=== PATIENT | male | born 1970 | race Caucasian/White ===

== ENCOUNTER 2019-02-28 14:41 | Inpatient (IN) ==
[2019-02-28] MEDS ORDERED: ASPIRIN PO ONE (14:43)
--- NOTE | 2019-02-28 14:50 | EKG Report ---
Test Performed on : 02/28/2019 2:44:31 PM Test Reason : cp Blood Pressure : / mmHG Vent. Rate : 070 BPM Atrial Rate : 070 BPM P-R Int : 192 ms QRS Dur : 100 ms QT Int : 400 ms P-R-T Axes : 025 010 175 degrees QTc Int : 432 ms Normal sinus rhythm. Septal infarct , age undetermined ST & T wave abnormality, consider inferolateral ischemia Abnormal ECG When compared with ECG of 08-JAN-2019 16:06, Septal infarct is now present Unconfirmed Result
[2019-02-28 15:25] LABS: BASO# 0.03 X1000 (0.0-0.2); BASO% 0.3 % (0.0-0.8); EOS# 0.32 X1000 (0.0-0.7); EOS% 3.5 % (0.0-10.0); HEMATOCRIT 40.1 % (42.0-52.0); HEMOGLOBIN 13.5 g/dL (14.0-18.0); IMM GRAN# 0.07 X1000 (0.0-0.04); IMM GRAN% 0.8 % (0.0-0.5); LYMPH# 2.45 X1000 (1.2-3.4); LYMPH% 26.4 % (20.5-51.1); MCH 28.8 PG (27-31); MCHC 33.7 g/dL (33-37); MCV 85.5 FL (81-99); MONO# 0.45 X1000 (0.11-0.59); MONO% 4.9 % (1.7-9.3); MPV 10.6 FL (7.4-10.4); NEUT# 5.95 X1000 (1.4-6.5); NEUT% 64.1 % (42.2-75.2); PLT 248 X1000 (130-400); RBC 4.69 XMIL (4.7-6.1); WBC 9.27 X1000 (4.8-10.8)
[2019-02-28 15:34] LABS: INR 0.91
--- NOTE | 2019-02-28 15:34 | Diag Imaging Result Doc PS360 ---
EXAM: CHEST-2 VIEWS 02/28/2019 HISTORY: cp TECHNIQUE: PA and lateral chest COMMENT: The appearance the chest has not changed significantly since 01/08/2019. IMPRESSION: Stable chest. Electronically signed by Easton Franklin 02/28/2019 3:32 PM
[2019-02-28 15:35] LABS: PTT 28.5 Seconds (22.3-41.8)
[2019-02-28] MEDS ORDERED: SODIUM CHLORIDE 0.9% INJ ONE (15:41)
[2019-02-28] MEDS ORDERED: PHENERGAN IV ONE (15:41)
[2019-02-28] MEDS ORDERED: MORPHINE IV ONE ×2 (15:41→20:22)
[2019-02-28] MEDS ORDERED: BENADRYL IV ONE (15:41)
[2019-02-28 16:01] LABS: AGAP 16; ALB/GLOB RATIO 1.5; ALBUMIN 4.3 g/dL (3.5-5.0); ALKALINE PHOSPHATASE 103 U/L (32-122); BUN 11 mg/dL (8-22); CALCIUM 9.5 mg/dL (8.8-10.2); CHLORIDE 100 mmol/L (98-107); CK PROFILE 61 U/L (24-204); COSMO 284; CREATININE 0.7 mg/dL (0.7-1.2); ESTIMATED GFR > 60; GLUCOSE 199 mg/dL (70-104); GOT 23 U/L (10-34); GPT 26 U/L (10-44); POTASSIUM 3.8 mmol/L (3.5-5.1); SODIUM 140 mmol/L (136-145); TCO2 24 mmol/L (25-35); TOTAL BILIRUBIN 0.45 mg/dL (0.20-1.00); TOTAL PROTEIN 7.2 g/dL (6.3-8.3)
[2019-02-28] MEDS ORDERED: G.I. COCKTAIL PO ONE (17:18)
[2019-02-28] MEDS: LOVENOX SUBQ SCH (18:29)
[2019-02-28] MEDS: OFIRMEV 1000 MG/ISOTONIC SOLN 1,000 MG/100 ML BOTTLE IV PRN (18:41)
--- NOTE | 2019-02-28 19:01 | HISTORY AND PHYSICAL ---
CHIEF COMPLAINT: Chest pain. HISTORY OF PRESENT ILLNESS: This is a 48-year-old gentleman with a history of coronary artery bypass graft (2-vessel), hypertension, hyperlipidemia, gastroparesis, and insulin-dependent diabetes mellitus. He presents to the emergency room complaining of chest pain. He describes this as a sharp pain that radiates across his chest, bilateral shoulders, and now up into his jaws. He intermittently has accompanying nausea and lightheadedness with the pain. He denies any palpitations, any syncope, any shortness of breath, any fevers. PAST MEDICAL HISTORY: 1. Coronary artery disease, 2-vessel disease, having undergone a 2-vessel bypass, including PHUC to the LAD and a vein graft to the right coronary artery. Cardiac catheterization in November 2017 revealed patent grafts. 2. Hypertension. 3. Hyperlipidemia. 4. Gastroparesis with a T1/2 emptying of greater than 3 hours. 5. Insulin-dependent diabetes mellitus. 6. History of chronic back pain. 7. Gastroesophageal reflux disease with reflux noted to the distal esophagus on EGD. 8. Chronic narcotic use. 9. Chronic constipation. PAST SURGICAL HISTORY: 1. Coronary artery bypass graft in August 2017. 2. Multiple spinal surgeries with placement of a neurospinal stimulator in his lower back. 3. Tonsillectomy. 4. Cholecystectomy. SOCIAL HISTORY: He is unemployed. He is on disability. He used to work as a cook. He denies alcohol, tobacco, or illicit drug use. ALLERGIES: Neurontin, Keflex, Vasotec, Demerol, Robaxin, penicillin, Compazine, sulfa, Flomax. DIAGNOSTIC STUDIES: WBC is 9.2 with hemoglobin 13.5, hematocrit 40.1, and platelets of 248,000. INR 0.91. Sodium 140, potassium 3.8, BUN 11, creatinine 0.7 with a glucose of 199. Troponins are negative on multiple occasions. CPKs are 64, 61, and 64. ASSESSMENT AND PLAN: 1. Chest pain, rule out. We will trend EKGs as well as troponin and cardiac profile. We will continue any appropriate home medications. 2. Nausea. We will give Zofran. 3. Gastroparesis with a T1/2 emptying of greater than 3 hours. 4. Insulin-dependent diabetes mellitus. Start pattern blood glucose with sliding scale insulin. 5. History of chronic back pain. 6. Gastroesophageal reflux disease with reflux noted in the distal esophagus on esophagogastroduodenoscopy. 7. Chronic pain with narcotic dependence. 8. Chronic constipation. We will start Linzess. 9. Hypertension. We will continue appropriate home medications. 10. Deep vein thrombosis prophylaxis. We will use Lovenox. 11. Gastrointestinal prophylaxis. Prilosec. Further treatments pending hospital course. Dictated by SHRUTHI Antonio for Homer Beltran MD cc: SHRUTHI Antonio MD I have seen and examined Mr Polanco today in the ER. His father was at the bedside. Mr Polanco did continue to complain of chest pain radiating to his back and upper extremities. He did say that he normally get ease with his pains only with Dilaudid. I have examined him and reviewed his lab works.I have also exhaustively reviewed all his previous chart. His troponin x2 are negative.His EKG has no acute changes comparing to the previous ones. He has chronic back pains from old surgeries but nothing seems to be new. Mr Polanco will be admitted to the medical floor on Tele and continue to r/o any ACS. He has hx of gastroparesis and multiple pain issues documented in his chart. For now, I will be using IV Ofirmev for pain control. He was not particularly happy with the pain management Cardiology will be consulted. If ACS is r/o, patient can be discharged. All question and concerns were addressed. BULMARO
--- NOTE | 2019-02-28 21:03 | PROVIDER DOCUMENTATION ---
This chart was entered by Nidhi Beebe Scribe, acting as scribe for Martin Polanco MD. HPI-Chest Pain - General Chief Complaint: Chest Pain Stated Complaint: CP Time Seen by Provider: 02/28/19 15:05 Source: patient Allergies/Adverse Reactions: Patient Allergies Allergy/AdvReac Type Severity Reaction Status Date / Time methocarbamol [From Robaxin] Allergy Severe SHORTNESS Verified 08/18/18 20:26 OF BREATH prochlorperazine Allergy Severe seizures Verified 08/18/18 20:26 [From Compazine] tamsulosin [From Flomax] Allergy Severe SHORTNESS Verified 08/18/18 20:26 OF BREATH cephalexin [From Keflex] Allergy Mild RASH Verified 08/18/18 20:26 gabapentin [From Neurontin] Allergy Mild Hallucinati Verified 08/18/18 20:26 ons meperidine [From Demerol] Allergy Mild ITCHING Verified 08/18/18 20:26 Penicillins Allergy Mild RASH Verified 08/18/18 20:26 Sulfa (Sulfonamide Allergy Mild RASH Verified 08/18/18 20:26 Antibiotics) enalaprilat [From Vasotec] Allergy Unknown Unknown Verified 08/18/18 20:26 Home Medications: Home Medication List Medication Instructions Recorded Confirmed Last Taken Type Aspirin/Calcium Carbonate/Mag 325 mg PO QAM #30 tab 02/07/18 01/08/19 01/08/19 Rx [Aspirin Buffered 325 mg Tab] 325mg Clonazepam [Klonopin] 2 mg PO HS #30 tab 02/07/18 01/08/19 01/07/19 Rx 2mg Fenofibrate 160 mg PO QHS #30 tab 02/07/18 01/08/19 01/07/19 Rx 160mg Hydrochlorothiazide 25 mg PO DAILY #30 tab 02/07/18 01/08/19 01/08/19 Rx 25mg Pregabalin [Lyrica] 100 mg PO TID@0900,1500,2100 #90 02/07/18 01/08/19 01/08/19 Rx capsule 100mg Metoprolol [Lopressor] 100 mg PO BID 07/08/18 01/08/19 01/08/19 History 100mg Nifedipine [Nifedipine ER] 30 mg PO QHS 07/08/18 01/08/19 01/07/19 History 30mg Amitriptyline [Elavil] 100 mg PO DAILY 08/18/18 01/08/19 01/07/19 History 100mg Furosemide [Lasix] 40 mg PO DAILY 08/19/18 01/08/19 01/06/19 History 40mg Insulin Regular, Human [Humulin R 30 units SQ BID 08/19/18 01/08/19 01/08/19 His tory U-500 Kwikpen] 30 units Cannabidiol (Cbd) Extract 100 mg PO DAILY 01/08/19 01/08/19 01/08/19 History [Epidiolex] Insulin Human NPH [Humulin N] 70 unit SUBQ BID 01/08/19 01/08/19 01/08/19 History 70 units Lisinopril 40 mg PO DAILY 01/08/19 01/08/19 01/08/19 History 40mg Magnesium 30 mg PO QHS 01/08/19 01/08/19 01/07/19 History Omeprazole 40 mg PO BID 01/08/19 01/08/19 01/08/19 History 40mg Potassium Chloride 10 meq PO QHS 01/08/19 01/08/19 01/07/19 History - History of Present Illness-CP Nature of Presenting Problem: Patient is a 48 year old male who presents with central chest pain that radiates to back, bilateral shoulders and jaw. Patient states nausea and lightheadedness with pain. Report symptoms started 1 hour prior to arrival. States calling Dr. Joshi's office and was informed to come to the ED. History of a [place] in 2004, 6 cardiac stents placed and 2 CABGs. Does not report shortness of breath. Location: reports: central Chest Pain Radiation: reports: jaw, shoulders (bilateral), back Quality of Pain: reports: pressure, sharp Severity in ED: moderate Onset/Duration: 1 hour ago Timing: still present Context/Activities at Onset: reports: light activity Associated Symptoms: reports: nausea Prior Chest Pain/Cardiac Workup: reports: heart attack (2004), other (2 CABG.) Similar Symptoms Previously?: No Recently Seen Here or By Another Healthcare Provider: No Review of Systems - Adult - REVIEW OF SYSTEMS - ADULT Constitutional: reports: no symptoms reported. denies: chills, fever, fatique Eyes: reports: no symptoms reported Ears, Nose, Mouth & Throat: reports: no symptoms reported Cardiovascular: reports: see HPI, chest pain. denies: irregular heart rate, palpitations Respiratory: reports: no symptoms reported Gastrointestinal: reports: see HPI, nausea. denies: abdominal pain Genitourinary: reports: no symptoms reported Musculoskeletal: reports: no symptoms reported Integumentary: reports: no symptoms reported Neurological: reports: see HPI, other (lightheadedness). denies: dizziness/vertigo, headache/migraines, numbness, syncope Psychiatric: reports: no symptoms reported Endocrine: reports: no symptoms reported Hematologic/Lymphatic: reports: no symptoms reported Allergic/Immunologic: reports: no symptoms reported All Other Systems: Reviewed and Negative Past History - Adult - PAST MEDICAL HISTORY-ADULT Review of Records: reports: Old Records Reviewed, Nursing Assessment Review, Medications Reviewed, Social history reviewed & non-contributory. Major Childhood Illnesses: reports: denies history Cardiovascular: reports: CAD, HTN, hyperlipidemia, [place], other (6 stents) Respiratory: reports: sleep apnea Gastrointestinal: reports: GERD Obstetrical/Gynecological: reports: denies history Genitourinary: reports: kidney disease Musculoskeletal: reports: chronic pain (back) Neurological: reports: denies history Endocrine/Immune: reports: Diabetes Other Conditions: reports: denies history - PRIOR SURGERIES/PROCEDURES Surgical/Procedure History: reports: CABG (bypass x2 //), cholecystectomy, cardiac stent (x6), tonsillectomy, back/neck (back) - IMMUNIZATION STATUS Childhood Immunizations: See Nurse Assessment Flu Vaccine: See Nurse Assessment - FAMILY HISTORY Family History: other (father and mother [place], father quadruple bypass) - SOCIAL HISTORY Smoking: denies Substance Use: alcohol, marijuana Alcohol Use Frequency: occasionally Physical Exam-General - PHYSICAL EXAM-ADULT Initial Vital Signs Reviewed: Yes - CONSTITUTIONAL General Appearance: alert, moderate distress. negative: lethargic, obtunded - EYES Eyes: PERRL/EOMI, pink conjunctivae. negative: scleral icterus - HEAD, EARS, NOSE, MOUTH & THROAT HENMT: normocephalic/atraumatic, moist mucous membranes. negative: angioedema, hearing deficit - NECK Neck: non-tender, normal inspection. negative: C-spine tenderness - RESPIRATORY Respiratory: chest non-tender, lungs clear, normal breath sounds. negative: crackles, rhonchi, wheezing - CARDIOVASCULAR Cardiovascular: normal peripheral pulses, regular rate, rhythm. negative: tachycardia, systolic murmur - GASTROINTESTINAL (ABDOMEN) Abdominal Exam: normal bowel sounds, non tender, soft. negative: guarding, rebound - MUSCULOSKELETAL Extremity: non-tender, normal inspection. negative: deformity, erythema, swelling - SKIN Integumentary: normal color, normal turgor, warm/dry. negative: cyanosis, ecchymosis, erythema, jaundice - NEUROLOGIC Neurologic: grossly normal. negative: aphasia, facial droop - PSYCHIATRIC Psych/Mental Status: normal mood/affect, oriented x 3. negative: anxious - HEART Score HEART Score: History: Slightly Suspicious HEART Score: ECG: Non-Specific Repolarization Disturbance/LBBB/PM HEART Score: Age: 45-65 Years HEART Score: Risk Factors for Atherosclerotic Disease: > or = 3 Risk Factors or History of Atherosclerotic Disease HEART Score: Troponin: < or = Normal Limit (4) Total HEART Score:: 4 Progress - PLAN OF CARE/RESULTS Progress/Plan/Lab Results: Vital Signs - 8 hr 02/28/19 14:45 02/28/19 15:02 02/28/19 15:32 Temperature 98.3 F Pulse Rate 68 69 71 Respiratory Rate 22 24 12 Blood Pressure 156/79 164/97 144/71 O2 Sat by Pulse Oximetry 97 97 96 02/28/19 15:46 02/28/19 16:02 02/28/19 16:17 Temperature Pulse Rate 72 70 Respiratory Rate 23 22 25 H Blood Pressure 144/86 174/92 166/90 O2 Sat by Pulse Oximetry 98 95 96 02/28/19 16:20 02/28/19 16:30 02/28/19 16:32 Temperature Pulse Rate 72 71 71 Respiratory Rate 27 H 23 20 Blood Pressure 154/89 O2 Sat by Pulse Oximetry 96 94 L 94 L 02/28/19 16:40 02/28/19 16:46 02/28/19 16:50 Temperature Pulse Rate 69 70 71 Respiratory Rate 29 H 17 25 H Blood Pressure 174/89 O2 Sat by Pulse Oximetry 95 94 L 95 02/28/19 17:00 02/28/19 17:02 02/28/19 17:10 Temperature Pulse Rate 69 71 69 Respiratory Rate 22 22 11 L Blood Pressure 143/80 O2 Sat by Pulse Oximetry 95 95 96 02/28/19 17:16 02/28/19 17:20 02/28/19 17:30 Temperature Pulse Rate 69 73 68 Respiratory Rate 20 15 20 Blood Pressure 156/84 O2 Sat by Pulse Oximetry 96 97 96 02/28/19 17:32 02/28/19 17:40 02/28/19 17:46 Temperature Pulse Rate 66 67 66 Respiratory Rate 24 34 H 16 Blood Pressure 135/80 153/77 O2 Sat by Pulse Oximetry 96 96 98 02/28/19 17:50 02/28/19 18:00 02/28/19 18:01 Temperature Pulse Rate 66 67 68 Respiratory Rate 19 Blood Pressure 162/90 O2 Sat by Pulse Oximetry 97 97 95 02/28/19 18:10 02/28/19 18:16 02/28/19 18:20 Temperature Pulse Rate 66 67 Respiratory Rate Blood Pressure 166/81 O2 Sat by Pulse Oximetry 94 L 98 97 02/28/19 18:30 02/28/19 18:31 02/28/19 18:40 Temperature Pulse Rate 67 67 65 Respiratory Rate Blood Pressure 164/87 163/93 O2 Sat by Pulse Oximetry 96 96 97 02/28/19 18:47 02/28/19 19:01 02/28/19 19:46 Temperature Pulse Rate 64 64 66 Respiratory Rate 20 18 Blood Pressure 149/88 144/85 164/83 O2 Sat by Pulse Oximetry 96 96 95 02/28/19 20:02 Temperature Pulse Rate 67 Respiratory Rate 20 Blood Pressure 166/87 O2 Sat by Pulse Oximetry 95 Laboratory Results - last 24 hr 02/28/19 02/28/19 02/28/19 15:14 15:14 15:14 WBC 9.27 RBC 4.69 L Hgb 13.5 L Hct 40.1 L MCV 85.5 MCH 28.8 MCHC 33.7 RDW Std Deviation 15.0 H Plt Count 248 MPV 10.6 H Immature Gran % (Auto) 0.8 H Neut % (Auto) 64.1 Lymph % (Auto) 26.4 Gilliam % (Auto) 4.9 Eos % (Auto) 3.5 Baso % (Auto) 0.3 Immature Gran # (Auto) 0.07 H Neut # (Auto) 5.95 Lymph # (Auto) 2.45 Gilliam # (Auto) 0.45 Eos # (Auto) 0.32 Baso # (Auto) 0.03 PT INR PTT (Actin FS) Sodium 140 Potassium 3.8 Chloride 100 Carbon Dioxide 24 L Anion Gap 16 BUN 11 Creatinine 0.7 Estimated GFR/1.73 m2 > 60 BUN/Creatinine Ratio 16 Glucose 199 H Calculated Osmolality 284 Calcium 9.5 Total Bilirubin 0.45 AST 23 ALT 26 Alkaline Phosphatase 103 Creatine Kinase 61 Troponin T Jwr-S-Yjohibrybju Pept 89 Total Protein 7.2 Albumin 4.3 Globulin 2.9 Albumin/Globulin Ratio 1.5 02/28/19 02/28/19 02/28/19 15:14 15:14 17:17 WBC RBC Hgb Hct MCV MCH MCHC RDW Std Deviation Plt Count MPV Immature Gran % (Auto) Neut % (Auto) Lymph % (Auto) Gilliam % (Auto) Eos % (Auto) Baso % (Auto) Immature Gran # (Auto) Neut # (Auto) Lymph # (Auto) Gilliam # (Auto) Eos # (Auto) Baso # (Auto) PT 13.0 INR 0.91 PTT (Actin FS) 28.5 Sodium Potassium Chloride Carbon Dioxide Anion Gap BUN Creatinine Estimated GFR/1.73 m2 BUN/Creatinine Ratio Glucose Calculated Osmolality Calcium Total Bilirubin AST ALT Alkaline Phosphatase Creatine Kinase 64 Troponin T < 0.010 Bir-Q-Yjbjrhjbgoi Pept Total Protein Albumin Globulin Albumin/Globulin Ratio 02/28/19 17:17 WBC RBC Hgb Hct MCV MCH MCHC RDW Std Deviation Plt Count MPV Immature Gran % (Auto) Neut % (Auto) Lymph % (Auto) Gilliam % (Auto) Eos % (Auto) Baso % (Auto) Immature Gran # (Auto) Neut # (Auto) Lymph # (Auto) Gilliam # (Auto) Eos # (Auto) Baso # (Auto) PT INR PTT (Actin FS) Sodium Potassium Chloride Carbon Dioxide Anion Gap BUN Creatinine Estimated GFR/1.73 m2 BUN/Creatinine Ratio Glucose Calculated Osmolality Calcium Total Bilirubin AST ALT Alkaline Phosphatase Creatine Kinase Troponin T < 0.010 Qxf-A-Zfsauqszqgy Pept Total Protein Albumin Globulin Albumin/Globulin Ratio Orders Category Date Time Status Admit - [facility] Routine AdmDCTranf 02/28/19 17:17 Active Activity - Up with Assistance ORDERED Care 02/28/19 17:17 Active Cardiac Monitoring DIRECTED Care 02/28/19 14:43 Active FSBS/Accucheck Result AC + HS Care 02/28/19 17:19 Active Intake and Output-Strict ORDERED Care 02/28/19 17:17 Active Oxygen Therapy- ED Nursing DIRECTED Care 02/28/19 14:43 Active Saline Loc NOW Care 02/28/19 14:43 Active Vital Signs Order Q 8-HR ASSESS Care 02/28/19 17:17 Active Z-Document. for Tele Applied ORDERED Care 02/28/19 17:17 Active Diabetic Diet Diet 02/28/19 17:19 Active CHEST-2 VIEWS [RAD] Stat Exams 02/28/19 14:43 Completed BASIC METABOLIC PANEL [CHEM] Routine Lab 03/01/19 06:00 Uncollected CBC WITH ELECTRONIC DIFF [HEME] Stat Lab 02/28/19 15:14 Completed CBC WITH NO DIFF [HEME] Routine Lab 03/01/19 06:00 Uncollected CK PROFILE [SP CHEM] Stat Lab 02/28/19 15:14 Completed CK PROFILE [SP CHEM] Stat Lab 02/28/19 17:17 Completed CK PROFILE [SP CHEM] Timed Lab 02/28/19 20:45 Received COMPREHENSIVE METABOLIC PANEL [CHEM] Stat Lab 02/28/19 15:14 Completed PRO B-NATRIURETIC PEPTIDE Stat Lab 02/28/19 15:14 Completed PROTIME WITH INR [COAG] Stat Lab 02/28/19 15:14 Completed PTT [COAG] Stat Lab 02/28/19 15:14 Completed TROPONIN T 2300 Lab 02/28/19 20:45 Received TROPONIN T Stat Lab 02/28/19 15:14 Completed TROPONIN T Stat Lab 02/28/19 17:17 Completed Acetaminophen [Ofirmev 1000 mg/Isotonic Soln] Med 02/28/19 18:11 Active 1,000 mg in 100 ml IV Q6H PRN Aspirin Med 02/28/19 14:43 Discontinued 325 mg PO NOW ONE Diphenhydramine [Benadryl] Med 02/28/19 15:41 Discontinued 25 mg IV NOW ONE Enoxaparin [Lovenox] Med 02/28/19 17:30 Active 40 mg SUBQ Q24H Insulin Lispro [Humalog] Med 02/28/19 21:00 Active See Protocol SUBQ 0700,1100,1600,2100 Lido/Shaw Alk/Al&mg Hydrox [G.i. Cocktail] Med 02/28/19 17:18 Discontinued 30 ml PO NOW ONE Morphine Med 02/28/19 15:41 Discontinued 4 mg IV NOW ONE Nitroglycerin Sl [Nitroglycerin] Med 02/28/19 15:41 Active 0.4 mg SL Q5M PRN PRN Omeprazole [Prilosec] Med 03/01/19 07:00 Active 40 mg PO DAILY@0700 Ondansetron [Zofran] Med 02/28/19 17:17 Active 4 mg IV Q4H PRN PRN Promethazine [Phenergan] Med 02/28/19 15:41 Discontinued 12.5 mg IV NOW ONE Sodium Chloride 0.9% Med 02/28/19 15:41 Discontinued 10 ml INJ NOW ONE Sucralfate [Carafate] Med 02/28/19 21:00 Active 1 gm PO AC + HS CP/SOB/Palp >45 yrs of Age Stat Oth 02/28/19 14:43 Ordered Telemetry [OM.EQ] Routine Oth 02/28/19 17:17 Active EKG [EKG] Routine Ther 03/01/19 09:00 Ordered EKG [EKG] Stat Ther 02/28/19 14:43 Draft EKG [EKG] Stat Ther 02/28/19 17:02 Ordered Transfer/Admit Order [TRANSFER] Routine Transfer 02/28/19 18:52 Completed A/P: Chest pain R/O ACS. Initial troponin neg. EKG unchanged from 4 previous. Hx of CABG x 3 09/02. known pain medication seeker. Result Diagrams: 02/28/19 15:14 02/28/19 15:14 - EKG 1 Time of EKG reading by physician:: 14:44 EKG Read and Signed by:: Jim Coy EKG Interpretation (*Must complete 3 of following elements*): Abnormal (ST & T wave abnormality, consider inferolateral ischemia) Rate: 70 Rhythm: normal sinus rhythm [place]: normal [place] Interval: normal Comments: septal infarct, age undetermined; - XRAY 1 XRAY Study: Chest Impression: See EMR Report ( EXAM: CHEST-2 VIEWS 02/28/2019 HISTORY: cp TECHNIQUE: PA and lateral chest COMMENT: The appearance the chest has not changed significantly since 01/08/2019. IMPRESSION: Stable chest. Electronically signed by Easton Franklin 02/28/2019 3:32 PM 02/28/19 4512 In terpreting Physician: Easton Franklin MD Dictated Date/Time: 02/28/19 1531 cc: Jim Coy MD; Sharri Ku MD) - CONSULTS/PCP/HOSPITALIST Notification #1 *Consult/PCP/Hospitalist*: Dr. Nathan Time Discussed: 16:50 Reason/Comments: Dr. Polanco consulted with Dr. Nathan about patient. Consult Disposition: other (admit to hospitalist. will consult on patient.) Departure - Departure Date of Disposition Decision: 02/28/19 Time of Disposition Decision: 21:03 DIAGNOSIS: Chest pain at rest Disposition: ADMITTED INPATIENT 09 Certified Medical Emergency: Emergent Condition: Stable - Critical Care Note This patient required my direct & personal management of CC.: No Attestation - Physician/ ABILIO Attestation Patient care was provided by Advanced Practice Provider:: No The physician spent face to face time with patient:: Yes Advanced Practice Provider documentation review:: Supervising physician onsite and consulted in the evaluation and care of this patient. The physician did have a face to face encounter with the patient. This chart was documented by the indicated scribe, (Nidhi Beebe Scribe) and accurately reflects the services I performed and decisions made by me, Martin Polanco MD, as attested by the provider's signature.
[2019-02-28] MEDS: CARAFATE PO SCH (22:25)
[2019-02-28] MEDS: HUMALOG SUBQ SCH (22:26)
[2019-02-28] MEDS: NORCO-7.5 PO PRN (23:19)
[2019-03-01] MEDS: NITROGLYCERIN SL PRN ×4 (01:36→09:48)
[2019-03-01] MEDS ORDERED: MORPHINE IV ONE (02:03)
[2019-03-01] MEDS: ZOFRAN IV PRN ×3 (02:13→18:47)
[2019-03-01] MEDS: CARAFATE PO SCH ×3 (06:18→17:00)
[2019-03-01] MEDS: NORCO-7.5 PO PRN (06:19)
[2019-03-01] MEDS: HUMALOG SUBQ SCH ×3 (06:20→17:02)
[2019-03-01] MEDS ORDERED: PRILOSEC PO SCH ×2 (07:00→19:00)
[2019-03-01 07:56] LABS: HEMATOCRIT 37.2 % (42.0-52.0); HEMOGLOBIN 12.9 g/dL (14.0-18.0); MCH 30.3 PG (27-31); MCHC 34.7 g/dL (33-37); MCV 87.3 FL (81-99); RBC 4.26 XMIL (4.7-6.1); RDW 14.9 % (11.5-14.5); WBC 8.69 X1000 (4.8-10.8)
[2019-03-01 08:14] LABS: AGAP 13; BUN 12 mg/dL (8-22); CALCIUM 9.2 mg/dL (8.8-10.2); CHLORIDE 96 mmol/L (98-107); COSMO 274; CREATININE 0.7 mg/dL (0.7-1.2); ESTIMATED GFR > 60; GLUCOSE 178 mg/dL (70-104); POTASSIUM 3.3 mmol/L (3.5-5.1); SODIUM 135 mmol/L (136-145); TCO2 26 mmol/L (25-35)
[2019-03-01] MEDS ORDERED: LINZESS PO PRN (09:02)
[2019-03-01] MEDS: OFIRMEV 1000 MG/ISOTONIC SOLN 1,000 MG/100 ML BOTTLE IV PRN (09:52)
--- NOTE | 2019-03-01 11:47 | PROGRESS NOTE ---
DATE: 03/01/2019 SUBJECTIVE: This morning, I went to see Mr. Polanco in his hospital bed. There was no family member at the bedside at the time of the encounter. He did complain that he was having a lot of chest pain to his back radiating to both arms and that he has not had any improvement with the pain medications that he is on now. I evaluated Mr. Polanco also extensively yesterday. I think his father was at the bedside in the ER at the time that I saw him. I did a complete examination on him. I did not find any major abnormality on his physical exams, and he was admitted for chest pain to rule out. Anyway, this morning he was upset that nothing has been done and that he has not been given pain medication. He thinks Dilaudid is what helps him the most. I tried my best to explain to Mr. Polanco that as much as I would want to give him some more pain medication, I would rather want to know the etiology of the pain so that we can address it more efficiently. He was so upset when I said that. He just thinks that I am denying him of adequate care, especially not giving him Dilaudid for pain control. This gentleman said he was in pain 10/10 yet he was able to sustain a very lengthy conversation with me He started that nothing has been done to address his problems which included pains and nausea and vomiting. I told him for the pain he is getting IV Ofirmev and I have with held all narcotics because he has gastroparesis which could get worse with opioids. Mr Polanco got so mad, and he told me to get the F out of his room. He also said he did not want to see my face again and that he wanted a new physician to address his pain. He did mention that his legs were getting numb and that his hands were also getting numb. He had multiple surgeries before. He did not allow me to examine him today. I had early on ordered a CTA scan of the lungs to rule out any vascular pathology that could be explaining some of his pains since his troponin and repeat EKG all seem to have been negative. I have communicated this to my team, and we will try and get him a different physician. cc: MD BULMARO Canales
[2019-03-01] MEDS ORDERED: BENADRYL IV ONE (12:45)
[2019-03-01] MEDS ORDERED: BENADRYL PO ONE ×2 (13:30→14:00)
[2019-03-01] MEDS ORDERED: KLOR-CON PO ONE (13:55)
[2019-03-01] MEDS ORDERED: DILAUDID IM ONE ×2 (14:59→19:15)
[2019-03-01] MEDS ORDERED: LYRICA PO SCH (15:00)
[2019-03-01 16:23] VITALS: BP 204/68
--- NOTE | 2019-03-01 16:23 | Diag Imaging Result Doc PS360 ---
EXAM: CT THORAX W/O CONTRAST HISTORY: R/O aortic aneurysm TECHNIQUE: CT chest without contrast COMPARISON: 02-03-18 FINDINGS: There are no pleural effusions. No cardiomegaly. Prominent atherosclerosis. There are sternal wires. No aortic aneurysm. No enlarged lymph nodes. No infiltrates. No bronchiectasis. Right lateral hernia similar to the prior exam. Scarring in the right base. IMPRESSION: Normal aorta. This exam was performed using automated exposure control, adjustment of mA or kV according to patient size, and/or use of iterative reconstruction technique. Electronically signed by Ramon Bonds 03/01/2019 4:21 PM
[2019-03-01] MEDS ORDERED: HUMULIN R SUBQ SCH (17:00)
[2019-03-01] MEDS: LOVENOX SUBQ SCH (17:03)
--- NOTE | 2019-03-01 18:36 | CARDIOLOGY CONSULTATION ---
DATE: 03/01/2019 CHIEF COMPLAINT: Chest pain, nausea. HISTORY OF PRESENT ILLNESS: Mr. Polanco is a 48-year-old white male with a history of coronary artery disease and coronary bypass grafting, who presented for evaluation of chest discomfort that felt like a pressure, stabbing sensation in his mid chest, with radiation up into his neck as well as arms. This occurred yesterday shortly after he was eating. There was no exertional component. It was associated with shortness of breath as well as nausea. He has taken nitroglycerin before, with improvement in the shortness of breath but not in the discomfort in his chest. The pain has persisted ever since yesterday, when he ate some [place] rice. Again, no exertional component, no diaphoresis. PAST MEDICAL HISTORY: 1. Includes coronary disease. His most recent cardiac catheterization was apparently in 07/2018 at [facility]. I do not have those records. Prior to that, he had a cardiac catheterization in 11/2017. This demonstrated a distal 25% left main lesion. The left anterior descending originates from the left main. Patent stent in the proximal vessel. There is a diagonal branch that is subtotally occluded, and then after that the LAD is occluded. The PHUC ties in at that point. Widely patent LAD. Good perfusion of the distal LAD, with retrograde flow into the mid LAD. No apparent distal LAD disease that is significant. Circumflex nondominant. Proximal plaque on the order of 30%. No critical stenosis in the circumflex territory. Right coronary is dominant. Diffuse disease on the order of 40%. Posterolateral system appears to be diffusely diseased with a 90% stenosis in a terminal lesion. The vein graft to the right coronary ties into the mid to distal PDA, with excellent perfusion of the distal portion of the vessel. 2. Hypertension. 3. Hyperlipidemia. The patient has been on statin therapy, with inability to achieve targets. Have attempted PCSK9 inhibitors, but there have been insurance issues with those. 4. Gastroparesis, with a greater than 3-hour half-time emptying. 5. Insulin-dependent diabetes. 6. Reflux disease. 7. Chronic back pain with multiple surgeries involving multiple levels, with a large amount of metal hardware. 8. Chronic narcotic use. 9. Obesity. 10. Sleep apnea. SOCIAL HISTORY: He is . His is presently in the room. He is unemployed, on disability. No alcohol or illicit drugs. No tobacco. FAMILY HISTORY: Significant for hypertension. REVIEW OF SYSTEMS: A 10-system review of systems is negative, except for those things mentioned in HPI. PHYSICAL EXAMINATION: The patient is afebrile. Heart rate 82. His most recent blood pressure is 175/119. During this hospitalization his systolics have been most of the time greater than 150. Generally, he is in mild distress secondary to discomfort. HEENT: Oropharynx is moist. Normal dentition. Eye examination: [place] conjunctivae. White sclerae. Neck examination shows no obvious thyromegaly or thyroid tenderness. Cardiovascularly, he sounds to be in a regular rate and rhythm. He has no obvious murmurs. He has no S3 present. He has no lower extremity edema. His chest exam is clear bilaterally. He has no increased work of breathing. His abdomen is soft. Mild diffuse tenderness. No rebound, no guarding. He has no obvious organomegaly. His skin exam is warm and dry throughout, without any rashes. Neurological: He is moving all extremities well. He has no lateralizing deficits. Psychiatric: He is alert, oriented and pleasant. He has normal mood and affect. DIAGNOSTIC DATA: His EKG reviewed by me shows sinus rhythm, 70 beats per minute. He has mild ST depression and T-wave inversions noted in his high lateral leads as well as II, aVF and his lateral chest leads. This appears identical to his most recent EKG from the office which was performed in 10/2018. His chest x-ray is unremarkable for any acute findings, compared to a study in December. LABORATORY DATA: White count 8.7, hematocrit of 37, platelet count 237,000. His sodium is 135, potassium 3.3, his BUN is 12, creatinine 0.7. His cardiac enzymes are unremarkable. His proBNP is 89. His CKs and troponins have been negative. His albumin is 4.3. His liver enzymes are unremarkable. ASSESSMENT: Mr. Polanco is a 48-year-old male who presents with recurrent symptoms of chest pain. PLAN: His symptoms seem atypical. He has a history of coronary artery disease with multiple evaluations. Reportedly his evaluation at [facility] in July was unremarkable and he was referred to medical therapy. I will try to obtain records of this. If this is unremarkable and consistent with his previous catheterization in November, I would be very hesitant to proceed with any sort of invasive or noninvasive evaluation without some sort of objective data. Again, he has an unchanged EKG. He has atypical symptoms and a negative set of cardiac enzymes. Certainly his symptoms could be related to gastroparesis. He does not appear to be in heart failure based on the findings of his proBNP as well as his chest x-ray. Again, we will try to obtain his records from [place]. ADDENDUM: Review of his catheterization report from [facility] in 08/2018 shows essentially stable coronary disease. At this point further cardiac evaluations can be done as an outpatient given his stable EKG, negative cardiac enzymes, stable cath films x2 since 11/2017 and atypical symptoms. cc: Ruperto Nathan MD MTDMacie
--- NOTE | 2019-03-01 20:38 | DISCHARGE SUMMARY ---
ADMISSION DATE: 02/28/2019 DISCHARGE DATE: 03/01/2019 DISCHARGE DIAGNOSES: 1. Chest pain/back pain. 2. History of coronary artery disease status post coronary artery bypass graft. 3. Chronic back pain status post multiple spinal surgeries and neurospinal stimulator. 4. Gastroesophageal reflux disease. 5. Gastroparesis. 6. Type 2 diabetes. 7. History of narcotic use. 8. Chronic constipation. PROCEDURES PERFORMED: Chest x-ray dated 02/28/2019. Impression: Stable chest. The appearance of the chest has not changed significantly since 12/19/2018. CT scan dated 03/01/2019. Impression: There is no pleural effusion, no cardiomegaly, prominent atherosclerosis, there are sternal wires, no aortic aneurysm, no enlarged lymph nodes, no infiltrates, no bronchiectasis, right lateral hernia similar to prior exam, scarring in the right base, normal aorta. CONSULTATIONS: Cardiology Department, Dr. Ruperto Nathan. HOSPITAL COURSE: This is a 48-year-old male with a past medical history of chronic neck and back pain, coronary artery disease status post CABG, hypertension, hyperlipidemia, gastroesophageal reflux disease, gastroparesis, type 2 diabetes, history of narcotic use, and chronic constipation who has been extensively worked out workup by Cardiology Department presented to the emergency department with the chief complain off chest pain that radiates to his back, shoulders, and jaw. As per the patient, he was sitting at home and suddenly he was having this pain associated with some nausea and lightheadedness. His symptoms started 1 hour prior to arrival. It is not associated with shortness of breath or diaphoresis. We did a cardiac catheterization on 12/11/2017 that showed severe coronary artery disease, there is a severe stenosis of the diagonal branch of the left anterior descending and total occlusion of the left anterior descending, moderate stenosis not typical of the right coronary artery, patent saphenous vein graft to posterior descending branch of the right coronary artery, patent free mammary artery graft to left anterior descending, elevated LVEDP mild degree, 20 mmHg, suboptimal opacification of the left ventricle, cannot be really elaborated on the definite ejection fraction in this case, presence of extensive metal in the patient's thoracic spine, and adequate opacification of the right femoral artery with successful deployment of Angio-Seal device. They recommended that this patient will be treated medically, and also at that time they recommended to make an effort to find a pain senior clinical research associate for this patient as well given his chronic pain syndrome. He has been monitored by Dr. Joshi as an outpatient as well. As per the patient, he had also a cardiac cath done at [place] at the end of 2017, but they did not do any kind of intervention. This time this patient came because of chest pain radiated to his back and back pain as well. I checked his medications that he has been taking at home and I did not see any narcotics recently. He received tramadol I believe in November for a few days. As per the patient, he has an appointment with a pain clinic, [facility], this 03/05/2019. Also, this patient has been on Lyrica and Klonopin. Because of his chest pain, we see some cardiac enzymes and they were negative x4. Also, the CK level was negative, but he was complaining of extreme pain and he was feeling really bad for it. Also, he was complaining of nausea that was likely related to his pain as well. Cardiology Department evaluated this patient and we do not feel that this patient has an acute coronary syndrome based on his EKG report which is basically unchanged compared with previous admissions and his negative troponins. I will give him pain medication IM because it is really difficult to get an IV on this patient. We did a CT scan that did not show any acute abnormality but chronic changes as well as an x-ray. He wants to be discharged with some pain medication, narcotic, at least until this coming Sunday since he has an appointment with a pain clinic. I had an extensive conversation with him about worsening his gastroparesis with pain medication, and also I told the patient and the about no driving if he is going to take the medication especially combined with Klonopin and they agree with that. This patient is feeling better at this moment. Like I said, he is getting intramuscular pain medication. He will be discharged home today and he will need to follow up with Dr. Joshi in 1 or 2 weeks to monitor his heart and also I recommended to follow up with Dr. Mejia who is a maintenance instructor. He will need to call for an appointment this Sunday as well to control his gastroparesis. Follow up at the pain clinic this 03/05/2019, as well. Case has been discussed extensively with the patient and the at the bedside and they agreed with the management and also the plan. PHYSICAL EXAMINATION: vital signs: Temperature 98.4 degrees, pulse 87, respiratory rate 18, blood pressure 175/119, oxygen saturation 99% on room air. HEENT: Head normocephalic. No trauma. PERRLA. Neck: Supple no JVD. Central trachea. Chest: He has a scar in the middle of the chest that does not look infected. A little bit tenderness to palpation. Cardiovascular: RRR. pulmonary: Chest clear to auscultation. No wheezing or rales. Abdomen: Soft, slightly distended. Positive bowel sounds, but decreased. Extremities: No edema. No clubbing. No cyanosis. Neurological: The patient is alert and oriented x3. No focal deficits. LABORATORY: WBC 8.6, hemoglobin 12.9, hematocrit 37.2, and platelets 237,000. Sodium 135, potassium 3.3, chloride 96, bicarbonate 26, BUN 12, creatinine 0.7, glucose 178, calcium 9.2. Troponins negative x4. DISCHARGE MEDICATIONS: Amitriptyline 25 mg p.o. at bedtime, aspirin/calcium carbonate/mag 325 mg p.o. q.a.m., [*] extract 100 mg p.o. at bedtime, clonazepam 2 mg p.o. at bedtime, hydrochlorothiazide 25 mg p.o. daily, lisinopril 40 mg p.o. daily, insulin NPH 70 units subcutaneously b.i.d., insulin regular, Humulin R 30 units subcutaneous b.i.d., lisinopril 40 mg p.o. daily, magnesium 30 mg p.o. at bedtime, metoprolol 100 mg p.o. b.i.d., nifedipine 30 mg p.o. at bedtime, omeprazole 40 mg p.o. b.i.d., potassium chloride 99 mg p.o. at bedtime, Lyrica 100 mg p.o. t.i.d., and [place] 7.5 one tablet p.o. q. 6 hours. Like I mentioned before, this patient will need to follow up with Cardiology Department, Dr. Joshi; Gastroenterology department, Dr. Mejia; and his pain clinic this 03/05/2019. Again, this patient cannot drive if he is going to take pain medication, especially if he is going to take it with clonazepam. I explained to the patient that likely if he is going to be on these two medications, he will need to stop the clonazepam slowly and probably the pain clinic will do it at some point. But I cannot stop it right now for the risk of having withdrawals. TIME SPENT: Time discharging this patient and discussing the care and current condition with the family around 1-1/2 hours. cc: Alfonso Escobedo MD
[2019-03-01] MEDS ORDERED: ADALAT CC PO SCH (21:00)
[2019-03-01] MEDS ORDERED: ELAVIL PO SCH (21:00)
[2019-03-01] MEDS ORDERED: KLONOPIN PO SCH (21:00)
[2019-03-01] MEDS ORDERED: PATIENT'S OWN MED PO SCH ×2 (21:00)
[2019-03-01] MEDS ORDERED: HUMULIN N SUBQ SCH (21:00)
[2019-03-01] MEDS ORDERED: LOPRESSOR PO SCH (21:00)
[2019-03-02] MEDS ORDERED: PRINIVIL PO SCH (09:00)
[2019-03-02] MEDS ORDERED: HYDROCHLOROTHIAZIDE PO SCH (09:00)
[2019-03-02] MEDS ORDERED: ASPIRIN EC PO SCH (09:00)
--- NOTE | 2019-03-03 07:24 | EKG Report ---
Test Performed on : 03/01/2019 06:30:56 AM Test Reason : CP Blood Pressure : / mmHG Vent. Rate : 065 BPM Atrial Rate : 065 BPM P-R Int : 202 ms QRS Dur : 092 ms QT Int : 408 ms P-R-T Axes : 070 036 210 degrees QTc Int : 424 ms Normal sinus rhythm. T wave abnormality, consider inferolateral ischemia Abnormal ECG When compared with ECG of 01-MAR-2019 02:20, (Unconfirmed) No significant change was found Unconfirmed Result
--- NOTE | 2019-03-03 07:24 | EKG Report ---
Test Performed on : 03/01/2019 02:20:21 AM Test Reason : Chest Pain Blood Pressure : / mmHG Vent. Rate : 068 BPM Atrial Rate : 068 BPM P-R Int : 196 ms QRS Dur : 092 ms QT Int : 404 ms P-R-T Axes : 044 042 202 degrees QTc Int : 429 ms Normal sinus rhythm. ST & T wave abnormality, consider inferolateral ischemia Abnormal ECG When compared with ECG of 28-FEB-2019 17:04, (Unconfirmed) T wave inversion more evident in Inferior leads Unconfirmed Result
--- NOTE | 2019-03-03 07:48 | EKG Report ---
Test Performed on : 02/28/2019 5:04:41 PM Test Reason : REPEAT Blood Pressure : / mmHG Vent. Rate : 066 BPM Atrial Rate : 066 BPM P-R Int : 190 ms QRS Dur : 104 ms QT Int : 402 ms P-R-T Axes : 028 003 167 degrees QTc Int : 421 ms Normal sinus rhythm. ST & T wave abnormality, consider inferolateral ischemia Abnormal ECG When compared with ECG of 28-FEB-2019 14:44, (Unconfirmed) No significant change was found Unconfirmed Result
== END 2019-03-01 19:20 | disposition home or self-care (01) | DRG 313 ==
LOC: ED 14:41 → SUATTDRO 20:09 → 3N 20:09
PROVIDERS: ATTEND Internal Medicine
CPT/HCPCS: 71020; 71046; 71250; 80048; 80053; 82550; 82948; 83880; 84484; 85025; 85027; 85610; 85730; 93005; A9270; J0131; J1170; J1200; J1650; J1815; J2270; J2405; J2550; XXXXX

== ENCOUNTER 2019-04-28 11:03 | Inpatient (IN) ==
[2019-04-28] MEDS ORDERED: ASPIRIN PO ONE (11:12)
--- NOTE | 2019-04-28 11:27 | EKG Report ---
Test Performed on : 04/28/2019 11:20:58 AM Test Reason : chest pain Blood Pressure : / mmHG Vent. Rate : 067 BPM Atrial Rate : 067 BPM P-R Int : 192 ms QRS Dur : 106 ms QT Int : 408 ms P-R-T Axes : 040 048 198 degrees QTc Int : 431 ms Normal sinus rhythm. ST & T wave abnormality, consider inferolateral ischemia Abnormal ECG When compared with ECG of 01-MAR-2019 06:30, No significant change was found Unconfirmed Result
--- NOTE | 2019-04-28 12:02 | Diag Imaging Result Doc PS360 ---
EXAM: CHEST-1 VIEW HISTORY: cp TECHNIQUE: Chest single view COMPARISON: 02/28/2019 FINDINGS: Poor inspiratory effort. The heart is mildly prominent. The vessels are mildly distended. There are no infiltrates. No effusion identified. Extensive surgery to the thoracic spine. IMPRESSION: Mild pulmonary edema. Electronically signed by Ramon Bonds 04/28/2019 11:59 AM
[2019-04-28 12:23] LABS: BASO# 0.03 X1000 (0.0-0.2); BASO% 0.3 % (0.0-0.8); EOS# 0.59 X1000 (0.0-0.7); EOS% 6.6 % (0.0-10.0); HEMATOCRIT 34.9 % (42.0-52.0); HEMOGLOBIN 11.6 g/dL (14.0-18.0); IMM GRAN# 0.04 X1000 (0.0-0.04); IMM GRAN% 0.4 % (0.0-0.5); LYMPH# 2.13 X1000 (1.2-3.4); LYMPH% 23.7 % (20.5-51.1); MCH 29.2 PG (27-31); MCHC 33.2 g/dL (33-37); MCV 87.9 FL (81-99); MONO# 0.62 X1000 (0.11-0.59); MONO% 6.9 % (1.7-9.3); MPV 11.1 FL (7.4-10.4); NEUT# 5.57 X1000 (1.4-6.5); NEUT% 62.1 % (42.2-75.2); PLT 217 X1000 (130-400); RBC 3.97 XMIL (4.7-6.1); RDW 15.4 % (11.5-14.5); WBC 8.98 X1000 (4.8-10.8)
[2019-04-28 12:41] LABS: INR 0.85
[2019-04-28 12:46] LABS: AGAP 15; ALBUMIN 3.8 g/dL (3.5-5.0); ALKALINE PHOSPHATASE 70 U/L (32-122); BUN 14 mg/dL (8-22); CALCIUM 8.3 mg/dL (8.8-10.2); CHLORIDE 103 mmol/L (98-107); CK PROFILE 161 U/L (24-204); COSMO 284; CREATININE 0.7 mg/dL (0.7-1.2); ESTIMATED GFR > 60; GLUCOSE 164 mg/dL (70-104); GOT 22 U/L (10-34); GPT 19 U/L (10-44); POTASSIUM 3.8 mmol/L (3.5-5.1); SODIUM 140 mmol/L (136-145); TCO2 22 mmol/L (25-35); TOTAL PROTEIN 6.1 g/dL (6.3-8.3)
[2019-04-28 13:03] LABS: PTT < 20.0 Seconds (22.3-41.8)
[2019-04-28] MEDS ORDERED: ZOFRAN IV ONE (13:06)
[2019-04-28] MEDS ORDERED: DILAUDID IV ONE (13:06)
--- NOTE | 2019-04-28 13:12 | PROVIDER DOCUMENTATION ---
This chart was entered by Nidhi Beebe Scribe, acting as scribe for Myron Lopez MD. HPI-Chest Pain - General Chief Complaint: Chest Pain Stated Complaint: CHEST PAINS Time Seen by Provider: 04/28/19 11:13 Source: patient Allergies/Adverse Reactions: Patient Allergies Allergy/AdvReac Type Severity Reaction Status Date / Time methocarbamol [From Robaxin] Allergy Severe SHORTNESS Verified 08/18/18 20:26 OF BREATH prochlorperazine Allergy Severe seizures Verified 08/18/18 20:26 [From Compazine] tamsulosin [From Flomax] Allergy Severe SHORTNESS Verified 08/18/18 20:26 OF BREATH cephalexin [From Keflex] Allergy Mild RASH Verified 08/18/18 20:26 gabapentin [From Neurontin] Allergy Mild Hallucinati Verified 08/18/18 20:26 ons meperidine [From Demerol] Allergy Mild ITCHING Verified 08/18/18 20:26 Penicillins Allergy Mild RASH Verified 08/18/18 20:26 Sulfa (Sulfonamide Allergy Mild RASH Verified 08/18/18 20:26 Antibiotics) enalaprilat [From Vasotec] Allergy Unknown Unknown Verified 08/18/18 20:26 Home Medications: Home Medication List Medication Instructions Recorded Confirmed Last Taken Type Aspirin/Calcium Carbonate/Mag 325 mg PO QAM #30 tab 02/07/18 04/28/19 01/08/19 Rx [Aspirin Buffered 325 mg Tab] 325mg Clonazepam [Klonopin] 2 mg PO HS #30 tab 02/07/18 04/28/19 02/27/19 21:00 Rx Fenofibrate 160 mg PO QHS #30 tab 02/07/18 01/08/19 01/07/19 Rx 160mg Pregabalin [Lyrica] 100 mg PO TID@0900,1500,2100 #90 02/07/18 04/28/19 02/28/19 09:00 Rx capsule Metoprolol [Lopressor] 100 mg PO BID 07/08/18 04/28/19 02/28/19 09:00 History Nifedipine [Nifedipine ER] 30 mg PO QHS 07/08/18 04/28/19 02/27/19 21:00 History Amitriptyline [Elavil] 25 mg PO HS 12/11/0404/28/19 02/27/19 21:00 History Furosemide [Lasix] 40 mg PO DAILY 08/19/18 01/08/19 01/06/19 History 40mg Insulin Regular, Human [Humulin R 20 units SQ AC 08/19/18 04/28/19 02/28/19 09:00 History U-500 Kwikpen] Cannabidiol (Cbd) Extract 100 mg PO HS 01/08/19 04/28/19 02/27/19 21:00 History [Epidiolex] Insulin Human NPH [Humulin N] 70 unit SUBQ BID 01/08/19 04/28/19 02/28/19 09:00 History Lisinopril 40 mg PO DAILY 01/08/19 04/28/19 02/28/19 09:00 History Magnesium 30 mg PO QHS 01/08/19 04/28/19 02/27/19 21:00 History Omeprazole 40 mg PO BID 01/08/19 04/28/19 02/28/19 09:00 History Potassium Chloride 99 mg PO QHS 01/08/19 04/28/19 02/27/19 21:00 History Hydrocodone/APAP 7.5 mg/325 mg 1 ea PO Q6H PRN PRN #14 tab 03/01/19 Unknown Rx [Forrest-7.5] ATORVAstatin [Lipitor] 80 mg PO DAILY 04/28/19 04/28/19 Unknown History Hydrochlorothiazide 50 mg PO DAILY 04/28/19 04/28/19 Unknown History Oxycodone HCl/Acetaminophen 1 tab PO TID PRN PRN 04/28/19 04/28/19 Unknown History [Percocet 10-325 mg Tablet] - History of Present Illness-CP Nature of Presenting Problem: Patient is a 48 year old male who presents with central chest pain that radiates to bilateral shoulder, neck and jaw. States nausea and shortness of breath with pain. Reports symptoms started this morning at 0430. History of CABG. Location: reports: central Chest Pain Radiation: reports: jaw, neck, shoulders (bilateral) Quality of Pain: reports: sharp, tightness Severity in ED: mild Onset/Duration: this morning (0430) Timing: still present Context/Activities at Onset: reports: light activity Associated Symptoms: reports: nausea, shortness of breath Similar Symptoms Previously?: Yes Recently Seen Here or By Another Healthcare Provider: No Review of Systems - Adult - REVIEW OF SYSTEMS - ADULT Constitutional: reports: no symptoms reported. denies: chills, fever, fatique Eyes: reports: no symptoms reported Ears, Nose, Mouth & Throat: reports: no symptoms reported Cardiovascular: reports: see HPI, chest pain. denies: heart murmur, orthopnea Respiratory: reports: see HPI, shortness of breath. denies: cough, wheezing Gastrointestinal: reports: see HPI, nausea. denies: abdominal pain, diarrhea, vomiting Genitourinary: reports: no symptoms reported Musculoskeletal: reports: no symptoms reported Integumentary: reports: no symptoms reported Neurological: reports: no symptoms reported Psychiatric: reports: no symptoms reported Endocrine: reports: no symptoms reported Hematologic/Lymphatic: reports: no symptoms reported Allergic/Immunologic: reports: no symptoms reported All Other Systems: Reviewed and Negative Past History - Adult - PAST MEDICAL HISTORY-ADULT Review of Records: reports: Old Records Reviewed, Nursing Assessment Review, Medications Reviewed, Social history reviewed & non-contributory. Major Childhood Illnesses: reports: denies history Cardiovascular: reports: CAD, HTN, hyperlipidemia, NE, other (6 stents) Respiratory: reports: sleep apnea Gastrointestinal: reports: GERD Obstetrical/Gynecological: reports: denies history Genitourinary: reports: kidney disease Musculoskeletal: reports: denies history Neurological: reports: denies history Endocrine/Immune: reports: Diabetes Other Conditions: reports: denies history - PRIOR SURGERIES/PROCEDURES Surgical/Procedure History: reports: CABG (bypass x2 09/04/), cholecystectomy, cardiac stent (x6), tonsillectomy, back/neck - IMMUNIZATION STATUS Childhood Immunizations: See Nurse Assessment Flu Vaccine: See Nurse Assessment - FAMILY HISTORY Family History: other (father and mother NE, father quadruple bypass) - SOCIAL HISTORY Smoking: denies Substance Use: alcohol Alcohol Use Frequency: occasionally Living Situation: family Physical Exam-General - PHYSICAL EXAM-ADULT Initial Vital Signs Reviewed: Yes - CONSTITUTIONAL General Appearance: alert, mild distress, obese. negative: lethargic - EYES Eyes: PERRL/EOMI, pink conjunctivae. negative: sunken eyes - HEAD, EARS, NOSE, MOUTH & THROAT HENMT: normocephalic/atraumatic, moist mucous membranes. negative: angioedema - RESPIRATORY Respiratory: chest non-tender, lungs clear, normal breath sounds. negative: rhonchi - CARDIOVASCULAR Cardiovascular: normal peripheral pulses, regular rate, rhythm. negative: tachycardia - GASTROINTESTINAL (ABDOMEN) Abdominal Exam: normal bowel sounds, non tender, soft. negative: guarding, rigid - MUSCULOSKELETAL Extremity: non-tender, normal inspection. negative: deformity - SKIN Integumentary: normal color, normal turgor, warm/dry. negative: diaphoresis, erythema - NEUROLOGIC Neurologic: grossly normal. negative: aphasia, facial droop - PSYCHIATRIC Psych/Mental Status: normal mood/affect, oriented x 3. negative: anxious Progress - PLAN OF CARE/RESULTS Progress/Plan/Lab Results: Vital Signs - 8 hr 04/28/19 11:08 04/28/19 12:58 Temperature 97.6 F Pulse Rate 68 65 Respiratory Rate 18 16 Blood Pressure 163/80 145/77 O2 Sat by Pulse Oximetry 92 L 97 Laboratory Results - last 24 hr 04/28/19 04/28/19 04/28/19 12:00 12:00 12:00 WBC 8.98 RBC 3.97 L Hgb 11.6 L Hct 34.9 L MCV 87.9 MCH 29.2 MCHC 33.2 RDW Std Deviation 15.4 H Plt Count 217 MPV 11.1 H Immature Gran % (Auto) 0.4 Neut % (Auto) 62.1 Lymph % (Auto) 23.7 [place] % (Auto) 6.9 Eos % (Auto) 6.6 Baso % (Auto) 0.3 Immature Gran # (Auto) 0.04 Neut # (Auto) 5.57 Lymph # (Auto) 2.13 [place] # (Auto) 0.62 H Eos # (Auto) 0.59 Baso # (Auto) 0.03 PT INR PTT (Actin FS) Sodium 140 Potassium 3.8 Chloride 103 Carbon Dioxide 22 L Anion Gap 15 BUN 14 Creatinine 0.7 Estimated GFR/1.73 m2 > 60 BUN/Creatinine Ratio 20 Glucose 164 H Calculated Osmolality 284 Calcium 8.3 L Total Bilirubin 0.40 AST 22 ALT 19 Alkaline Phosphatase 70 Creatine Kinase 161 Troponin T Dmb-P-Bhnkjpczdat Pept 238 H Total Protein 6.1 L Albumin 3.8 Globulin 2.0 Albumin/Globulin Ratio 2.0 04/28/19 04/28/19 04/28/19 12:00 12:00 14:36 WBC RBC Hgb Hct MCV MCH MCHC RDW Std Deviation Plt Count MPV Immature Gran % (Auto) Neut % (Auto) Lymph % (Auto) [place] % (Auto) Eos % (Auto) Baso % (Auto) Immature Gran # (Auto) Neut # (Auto) Lymph # (Auto) [place] # (Auto) Eos # (Auto) Baso # (Auto) PT 12.0 INR 0.85 PTT (Actin FS) < 20.0 L Sodium Potassium Chloride Carbon Dioxide Anion Gap BUN Creatinine Estimated GFR/1.73 m2 BUN/Creatinine Ratio Glucose Calculated Osmolality Calcium Total Bilirubin AST ALT Alkaline Phosphatase Creatine Kinase 167 Troponin T 0.042 Ygo-I-Ascpdtpmbmb Pept Total Protein Albumin Globulin Albumin/Globulin Ratio Orders Category Date Time Status Admit - [facility] Routine AdmDCTranf 04/28/19 14:29 Active Cardiac Monitoring DIRECTED Care 04/28/19 11:12 Active DVT/PE Risk Assess/Protocol [QM] ORDERED Care 04/28/19 14:29 Active FSBS/Accucheck Result AC + HS Care 04/28/19 14:28 Active Notify MD if DIRECTED Care 04/28/19 14:29 Active Nursing- MD Consult Request ROUTINE Care 04/28/19 14:33 Active Oxygen Therapy- ED Nursing DIRECTED Care 04/28/19 11:12 Active Saline Loc DIRECTED Care 04/28/19 14:29 Active Saline Loc NOW Care 04/28/19 11:12 Active Vital Signs Order Q 4-HR ASSESS Care 04/28/19 14:29 Active Z-Document. for Tele Applied ORDERED Care 04/28/19 14:31 Active MD [Physician/Provider Consults] Routine Cons 04/28/19 14:32 Ordered Heart Healthy Diet Diet 04/28/19 14:29 Active NPO Diet 04/29/19 00:01 Active CHEST-2 VIEWS [RAD] Stat Exams 04/28/19 11:12 Ordered MYOCARDIAL PERF SCAN, STR/REST [NM] Routine Exams 04/29/19 07:00 Ordered cxr [CHEST-1 VIEW] [RAD] Stat Exams 04/28/19 11:14 Completed CBC WITH ELECTRONIC DIFF [HEME] Stat Lab 04/28/19 12:00 Completed CBC WITH NO DIFF [HEME] Routine Lab 04/29/19 06:00 Ordered CK PROFILE [SP CHEM] Q8H Lab 04/28/19 22:30 Ordered CK PROFILE [SP CHEM] Q8H Lab 04/29/19 06:30 Ordered CK PROFILE [SP CHEM] Stat Lab 04/28/19 12:00 Completed CK PROFILE [SP CHEM] Stat Lab 04/28/19 14:36 Completed COMPREHENSIVE METABOLIC PANEL [CHEM] Routine Lab 04/29/19 06:00 Uncollected COMPREHENSIVE METABOLIC PANEL [CHEM] Stat Lab 04/28/19 12:00 Completed LIPID PROFILE W/CALC LDL [LIPIDS] Routine Lab 04/29/19 06:00 Ordered MAGNESIUM [CHEM] Routine Lab 04/28/19 14:28 Uncollected PRO B-NATRIURETIC PEPTIDE Stat Lab 04/28/19 12:00 Completed PROTIME WITH INR [COAG] Stat Lab 04/28/19 12:00 Completed PTT [COAG] Stat Lab 04/28/19 12:00 Completed TROPONIN T Q8H Lab 04/28/19 22:30 Ordered TROPONIN T Q8H Lab 04/29/19 06:30 Ordered TROPONIN T Stat Lab 04/28/19 12:00 Completed TROPONIN T Stat Lab 04/28/19 14:36 Received ATORVAstatin [Lipitor] Med 04/28/19 21:00 Active 80 mg PO HS Acetaminophen [Tylenol] Med 04/28/19 14:28 Active 650 mg PO Q6H PRN PRN Amitriptyline [Elavil] Med 04/28/19 21:00 Active 25 mg PO HS Aspirin Med 04/29/19 09:00 Active 325 mg PO DAILY Aspirin Med 04/28/19 11:12 Discontinued 325 mg PO NOW ONE Clonazepam [Klonopin] Med 04/28/19 21:00 Active 1 mg PO HS Furosemide [Lasix] Med 04/28/19 16:00 Active 40 mg IV Q12H Hydromorphone [Dilaudid] Med 04/28/19 13:06 Discontinued 1 mg IV NOW ONE Insulin Human NPH (Geolab-IT) [Humulin N Insulin (Geol[employer]-IT Med 04/28/19 21:00 Active )] 100 unit SUBQ QPM Insulin Human NPH (Geol[employer]-IT) [Humulin N Insulin (Geol[employer]-IT Med 04/29/19 09:00 Active )] 70 unit SUBQ QAM Insulin Human Regular ([place] [Humulin R (Geol[employer]-IT)] Med 04/28/19 16:00 Active 20 units SUBQ AC LISINOpril [Prinivil] Med 04/29/19 09:00 Active 40 mg PO DAILY Magnesium Oxide [Mag-Ox] Med 04/28/19 21:00 Active 400 mg PO QHS Metoprolol [Lopressor] Med 04/28/19 21:00 Active 100 mg PO BID Nifedipine E.r. [Adalat cc] Med 04/28/19 21:00 Active 30 mg PO QHS Nitroglycerin Sl [Nitroglycerin] Med 04/28/19 14:28 Active 0.4 mg SL Q5M PRN PRN Omeprazole [Prilosec] Med 04/29/19 07:00 Discontinued 20 mg PO DAILY@0700 Omeprazole [Prilosec] Med 04/28/19 21:00 Active 40 mg PO BID Ondansetron [Zofran] Med 04/28/19 13:06 Discontinued 4 mg IV NOW ONE Ondansetron [Zofran] Med 04/28/19 14:28 Active 4 mg IV Q4H PRN PRN Oxycodone/APAP 10 mg/325 mg [Percocet-10] Med 04/28/19 14:31 Active 1 each PO TID PRN PRN Pregabalin [Lyrica] Med 04/28/19 15:00 Active 100 mg PO TID@0900,1500,2100 CP/SOB/Palp >45 yrs of Age Stat Oth 04/28/19 11:12 Ordered Oxygen Device Routine Oth 04/28/19 14:29 Active Telemetry [OM.EQ] Routine Oth 04/28/19 14:29 Active EKG [EKG] Stat Ther 04/28/19 11:12 Draft EKG [EKG] Stat Ther 04/28/19 11:14 Ordered EKG [EKG] Stat Ther 04/28/19 14:22 Ordered Echo Spec/Color Doppler Routine Ther 04/28/19 14:28 Ordered Transfer/Admit Order [TRANSFER] Routine Transfer 04/28/19 14:34 Ordered Result Diagrams: 04/28/19 12:00 04/28/19 12:00 - EKG 1 Time of EKG reading by physician:: 11:20 EKG Read and Signed by:: Myron Lopez EKG Interpretation (*Must complete 3 of following elements*): Abnormal Rate: 67 Rhythm: normal sinus rhythm [place]: normal [place] Interval: normal Comments: ST & T wave abnormality, consider inferolateral ischemia 2 Time of EKG reading by physician:: 14:33 EKG Read and Signed by:: Myron Lopez EKG Interpretation (*Must complete 3 of following elements*): Abnormal Rate: 66 Rhythm: sinus rhythm with occasional premature ventricular complexes [place]: normal Comments: ST & T wave abnormality, consider inferolateral ischemia - XRAY 1 XRAY Study: Chest Impression: See EMR Report (Signed EXAM: CHEST-1 VIEW HISTORY: cp TECHNIQUE: Chest single view COMPARISON: 02/28/2019 FINDINGS: Poor inspiratory effort. The heart is mildly prominent. The vessels are mildly distended. There are no infiltrates. No effusion identified. Extensive surgery to the thoracic spine. IMPRESSION: Mild pulmonary edema. Electronically signed by Ramon Bonds 04/28/2019 11:59 AM 04/28/19 1159 Interpreting Physician: Ramon Bonds MD Dictated Date/Time: 04/28/19 1158 cc: Myron Lopez MD; Sharri Ku MD) - CONSULTS/PCP/HOSPITALIST Notification #1 *Consult/PCP/Hospitalist*: Dr. Ogden Time Discussed: 13:10 Reason/Comments: Dr. Lopez consulted with Dr. Ogden about patient Consult Disposition: Will see in ED, Admit Departure - Departure Date of Disposition Decision: 04/28/19 Time of Disposition Decision: 13:10 DIAGNOSIS: Chest pain at rest, Diabetes mellitus, Uncontrolled hypertension, Hx of CABG Disposition: ADMITTED INPATIENT 09 Certified Medical Emergency: Emergent Condition: Fair Referrals and Follow-Ups: Sharri Ku MD [Primary Care Provider] - - Critical Care Note This patient required my direct & personal management of CC.: No Attestation - Physician/ ABILIO Attestation Patient care was provided by Advanced Practice Provider:: No The physician spent face to face time with patient:: Yes Advanced Practice Provider documentation review:: Supervising physician onsite and consulted in the evaluation and care of this patient. The physician did have a face to face encounter with the patient. This chart was documented by the indicated scribe, (Nidhi Beebe Scribe) and accurately reflects the services I performed and decisions made by me, Myron Lopez MD, as attested by the provider's signature.
[2019-04-28] MEDS ORDERED: NITROGLYCERIN SL PRN (14:28)
[2019-04-28] MEDS ORDERED: TYLENOL PO PRN (14:28)
[2019-04-28] MEDS ORDERED: ZOFRAN IV PRN (14:28)
[2019-04-28] MEDS ORDERED: PERCOCET-10 PO PRN (14:31)
[2019-04-28] MEDS: LYRICA PO SCH ×2 (15:17→21:33)
--- NOTE | 2019-04-28 15:31 | EKG Report ---
Test Performed on : 04/28/2019 2:33:34 PM Test Reason : cp Blood Pressure : / mmHG Vent. Rate : 066 BPM Atrial Rate : 066 BPM P-R Int : 202 ms QRS Dur : 104 ms QT Int : 418 ms P-R-T Axes : 036 029 196 degrees QTc Int : 438 ms Sinus rhythm. with occasional premature ventricular complexes. ST & T wave abnormality, consider inferolateral ischemia Abnormal ECG When compared with ECG of 28-APR-2019 11:20, (Unconfirmed) premature ventricular complexes. are now present Unconfirmed Result
[2019-04-28] MEDS ORDERED: PHENERGAN IV PRN (15:43)
[2019-04-28] MEDS ORDERED: SODIUM CHLORIDE 0.9% INJ PRN (15:43)
--- NOTE | 2019-04-28 16:16 | HISTORY AND PHYSICAL ---
PRIMARY CARE PHYSICIAN: Dr. Sharri Ku. CHIEF COMPLAINT: Chest pain radiating to his bilateral shoulders, neck and jaw, with associated nausea and shortness of breath that began this morning around 4:30 a.m. HISTORY OF PRESENT ILLNESS: This is a 48-year-old male who presents to [facility] ER, with complaints of central chest pain that radiated to his bilateral shoulders, neck and jaw, with associated nausea and shortness of breath that began around 4:30 a.m. this morning and progressively worsened. Has a history of MT with coronary artery disease, hyperlipidemia, hypertension with 6 stents being placed. Laboratory data showed first 2 sets of cardiac enzymes were negative. EKG showed normal sinus rhythm at 67. It is noted that he was in the hospital on 02/28/2019 through 03/01/2019 with complaints of chest pain. Cardiology saw at that time and it is also noted that he is monitored by Dr. Joshi as an outpatient as well, so he will be admitted for further evaluation and treatment. PAST MEDICAL HISTORY: 1. Coronary artery disease with 2 vessel disease, having undergone a 2 vessel bypass including PHUC to the LAD and a vein graft to the right coronary artery with a cardiac catheterization in November 2017 that revealed patent grafts. 2. Hypertension. 3. Hyperlipidemia. 4. Gastroparesis with a T one-half emptying of greater than 3 hours. 5. Insulin-dependent diabetes. 6. History of chronic back pain. 7. Gastroesophageal reflux disease. 8. Chronic narcotic use. 9. Chronic constipation. PAST SURGICAL HISTORY: 1. Coronary artery bypass graft in August 2017. 2. Multiple spinal surgeries with placement of a neuro spinal stimulator in his lower back. 3. Tonsillectomy. 4. Cholecystectomy. FAMILY HISTORY: Reviewed and noncontributory. SOCIAL HISTORY: He is currently on disability. Lives with his . Denies any tobacco, alcohol or illicit drug use. ALLERGIES: 1. Neurontin. 2. Keflex. 3. Vasotec. 4. Demerol. 5. Robaxin. 6. Penicillin. 7. Compazine. 8. Sulfa. 9. Flomax. HOME MEDICATIONS: A current list will need to be obtained, restarted, reconciled and reviewed. We will place an order for nursing to update and confirm home medications. LABORATORY DATA: Showed a white blood cell count of 8.98, hemoglobin 11.6, hematocrit 34.9, platelets 217,000. PT and INR of 12 and 0.85. Sodium 140, potassium 3.8, chloride 103, CO2 22, BUN of 14, creatinine 0.7, glucose 164, magnesium of 1.5. Cardiac enzymes x2 sets were negative. ProBNP of 238. Chest x-ray showed mild pulmonary edema. EKG showed normal sinus rhythm at 67. REVIEW OF SYSTEMS: He denied any fever, chills, blurred vision, dizziness. He was positive for chest pain that radiated to his bilateral shoulders, neck and jaw, shortness of breath, nausea. Denied any abdominal pain, constipation, diarrhea, burning or hurting with urination. PHYSICAL EXAMINATION: VITAL SIGNS: On arrival, he had a temperature of 97.6 degrees, pulse 68, respirations 18, blood pressure 163/80, saturating 92% on room air. GENERAL: This is a 48-year-old male who is lying in the bed and answers questions appropriately. HEENT: Normocephalic, atraumatic. Normal ENT inspection. Oropharynx and nares are clear. EYES: Pupils are equal, round, reactive to light and accommodation. Extraocular movements are intact. NECK: Normal inspection. Normal range of motion. LUNGS: Clear to auscultation bilaterally with equal lung expansion and chest wall movement. HEART: With regular rate and rhythm. No murmurs, rubs, or gallops. ABDOMEN: Soft, nontender, nondistended. Bowel sounds are present x4 quadrants. MUSCULOSKELETAL: He has 5/5 strength x4 extremities. NEUROLOGICAL: The cranial nerves 2-12 appear grossly intact. ASSESSMENT: 1. Chest pain, rule out. 2. Nausea. 3. Hypertension. 4. Coronary artery disease, history of. Aware. 5. Gastroesophageal reflux disease. 6. Chronic pain with narcotic dependency. 7. Chronic constipation. PLAN: He will be admitted to the medical unit at [place], placed on telemetry, O2 per protocol, healthy heart diet, n.p.o. after midnight. We will check an echocardiogram. We will consult Cardiology. Trend his cardiac enzymes. We will do a myocardial perfusion scan in the a.m. Will update home medications. We will place him on Lasix 40 mg IV q.[address] him on Phenergan 25 mg IV q.4 hours p.r.n. as he states Zofran is ineffective. Give him morphine 2 mg IV q.3 hours p.r.n. for chest pain and nitroglycerin 0.4 mg sublingually every 5 minutes p.r.n. x3. Further orders after seen by attending and netsuite consultant. Dictated by SHRUTHI Allen for Cior Ogden MD cc: SHRUTHI Allen MD Martha Read
[2019-04-28] MEDS: LASIX IV SCH (16:42)
[2019-04-28] MEDS: MORPHINE IV PRN ×2 (16:43→21:40)
[2019-04-28] MEDS: HUMULIN R (PARKWAY) SUBQ SCH (18:04)
--- NOTE | 2019-04-28 18:33 | HISTORY AND PHYSICAL ---
ADDENDUM: Patient was seen and examined by myself. Full note dictated and discussed with nurse practitioner. Patient has an extensive history of coronary disease with 6 stents and coronary bypass grafting in 2017. He presented to the hospital with chest pain. We will rule out DC. He states he has not had any workup on his heart since his last surgery in August 2017. Interestingly, he notes that his symptoms are worse than when he had his stents 2 years ago, although he certainly appears to be in no visible distress currently. Will follow. cc: Ciro Ogden MD
[2019-04-28] MEDS ORDERED: HUMULIN N INSULIN (PARKWAY) SUBQ SCH (21:00)
[2019-04-28] MEDS ORDERED: PRILOSEC PO SCH (21:00)
[2019-04-28] MEDS: ADALAT CC PO SCH (21:32)
[2019-04-28] MEDS: MAG-OX PO SCH (21:32)
[2019-04-28] MEDS: LIPITOR PO SCH (21:32)
[2019-04-28] MEDS: ELAVIL PO SCH (21:33)
[2019-04-28] MEDS: LOPRESSOR PO SCH (21:33)
[2019-04-28] MEDS: KLONOPIN PO SCH (21:33)
[2019-04-29] MEDS: MORPHINE IV PRN ×6 (03:13→21:56)
[2019-04-29] MEDS: LASIX IV SCH (03:13)
[2019-04-29 06:20] LABS: HEMATOCRIT 36.7 % (42.0-52.0); HEMOGLOBIN 12.3 g/dL (14.0-18.0); MCH 29.3 PG (27-31); MCHC 33.5 g/dL (33-37); MCV 87.4 FL (81-99); MPV 10.3 FL (7.4-10.4); RBC 4.2 XMIL (4.7-6.1); RDW 15.3 % (11.5-14.5); WBC 9.9 X1000 (4.8-10.8)
[2019-04-29 06:42] LABS: ESTIMATED GFR > 60
[2019-04-29 06:43] LABS: AGAP 12; ALBUMIN 3.6 g/dL (3.5-5.0); ALKALINE PHOSPHATASE 80 U/L (32-122); BUN 12 mg/dL (8-22); CALCIUM 8.4 mg/dL (8.8-10.2); CHLORIDE 98 mmol/L (98-107); CHOLESTEROL 134 mg/dL (0-200); COSMO 283; CREATININE 0.6 mg/dL (0.7-1.2); GLUCOSE 198 mg/dL (70-104); GOT 26 U/L (10-34); GPT 20 U/L (10-44); HDL 20 mg/dL (35-55); POTASSIUM 3.5 mmol/L (3.5-5.1); SODIUM 139 mmol/L (136-145); TCO2 29 mmol/L (25-35); TOTAL PROTEIN 6.2 g/dL (6.3-8.3); TRIGLYCERIDES 503 mg/dL (39-160)
[2019-04-29] MEDS ORDERED: PRILOSEC PO SCH (07:00)
[2019-04-29] MEDS ORDERED: HUMULIN N INSULIN (PARKWAY) SUBQ SCH (09:00)
[2019-04-29] MEDS: LOVENOX SUBQ SCH ×2 (09:18→21:57)
[2019-04-29] MEDS: LYRICA PO SCH ×3 (09:18→21:58)
[2019-04-29] MEDS: ASPIRIN PO SCH (09:19)
[2019-04-29] MEDS: PRILOSEC PO SCH ×2 (09:19→21:57)
[2019-04-29] MEDS: PRINIVIL PO SCH (09:19)
[2019-04-29] MEDS: LOPRESSOR PO SCH ×2 (09:19→21:58)
--- NOTE | 2019-04-29 10:12 | EKG Report ---
Test Performed on : 04/29/2019 09:22:04 AM Test Reason : chest pain Blood Pressure : / mmHG Vent. Rate : 072 BPM Atrial Rate : 072 BPM P-R Int : 202 ms QRS Dur : 110 ms QT Int : 402 ms P-R-T Axes : 039 039 206 degrees QTc Int : 440 ms Normal sinus rhythm. Possible Left atrial enlargement ST & T wave abnormality, consider inferolateral ischemia Abnormal ECG When compared with ECG of 29-APR-2019 09:09, (Unconfirmed) Incomplete right bundle branch block is no longer present Confirmed by Lamin Kelly MD ([id number]) on 05/22/2019 3:33:23 PM
[2019-04-29] MEDS: HUMULIN R (PARKWAY) SUBQ SCH ×3 (10:29→16:48)
[2019-04-29] MEDS: PLAVIX PO SCH (11:17)
--- NOTE | 2019-04-29 12:12 | CARDIOLOGY CONSULTATION ---
DATE: 04/29/2019 CHIEF COMPLAINT: Chest pain. HISTORY: Mr. Polanco is a 48-year-old male who is known to Dr. Joshi from our group and primary care physician, Dr. Sharri Ku. The patient presented to the ER at about 11 a.m. yesterday complaining of pain in the front of the chest that has been going on for almost 2 weeks. This has been intermittent. However, the night prior to admission, the pain was very intense, woke him up from sleep, and it was worse than prior. It seemed to radiate to the neck and to the arms. He also felt somewhat short of breath. Upon presentation, they did a 12 lead EKG that shows sinus rhythm with diffuse ST and T-wave abnormality in the inferior lateral leads. That has not changed when compared to prior. Interestingly, his troponins at this time, unlike 3 other prior admissions, were slightly positive initially at 12 noon yesterday 0.042, then at 2:36 p.m. yesterday, 0.072, then at 10:24 p.m. last night,0.179 mg/mL, and this morning at 5:47 in the morning 0.1329 mg/mL. His EKG this morning shows no changes. The same ST-T abnormalities present as on admission. The proBNP level was slightly elevated at 230 pg/mL. On prior admissions, has been even higher up to 400 at some point. His lipid panel is really dyslipidemic, triglycerides 503, total cholesterol 134, HDL 20. At any rate, the patient has been given some pain medications and is going to be tested this morning. He is feeling more comfortable. I am seeing him at about 11 a.m. on April 29. His pain has improved some. He does have chronic back pain. PAST HISTORY: Positive for severe coronary heart disease. He underwent a double bypass graft procedure in August 2017. At that time, they did a mammary graft to LAD and a vein graft to the posterior descending branch of right coronary artery. Because of recurrent chest pain, he was subsequently cath 'd in November 2017 at [facility] that showed left main 25 to 30 percent, LAD diffuse 30%, diagonals are totally occluded, LAD 100% at the level of more distal stent. Circumflex 30%, right coronary artery 40%, posterolateral branch 90%. Posterior descending branch showed competition of flow from the vein graft. His mammary graft was a free mammary graft to LAD. The patient was admitted a few more times. In July 2018 apparently he was visiting [place] and he went to [facility] where they did a follow-up heart catheterization, and at that time the physicians in their report stated that he would be better off with medical therapy. They did not do any specific coronary intervention. He has been admitted recently in December, and in February of this year. On those 2 visits they ruled out myocardial infarction. He was seen by Dr. Ruperto Nathan in consultation on March 01. No specific intervention done at that time. A chest CT done on March 01 showed normal aorta. Prominent atherosclerosis. No pleural effusions. He has a long-term history of chronic back pain and narcotic dependence. He is under the care of a pain specialist. He has diabetes mellitus type 2, gastroparesis, and he has a severe case of dyslipidemia, hypertension. SURGICAL HISTORY: He has had the open-heart procedure in August 2017. He has extensive spine surgery. He has basically his entire thoracic and lumbar spine laden with metal. He has tonsillectomy, cholecystectomy and a prior neuro spinal stimulator. SOCIAL HISTORY: He is living with a girlfriend. Disabled. Not a smoker. Not a drinker. FAMILY HISTORY: Noncontributory. ALLERGIES: Robaxin, Compazine, Flomax, Keflex, Neurontin, Demerol, sulfonamide, and Vasotec. HOME MEDICATIONS: Include amitriptyline 25 mg at bedtime, aspirin 325 daily, Lipitor 80 daily, Klonopin 2 mg at bedtime, hydrochlorothiazide 50 daily, insulin NPH 70 units twice a day and regular Humulin 20 units before meals, lisinopril 40 mg daily, magnesium 30 mg at bedtime, metoprolol 100 twice a day, nifedipine 30 at bedtime, omeprazole 40 twice a day, oxycodone/acetaminophen as needed, potassium chloride, and pregabalin. REVIEW OF SYSTEMS: He is chronically in pain. He has intermittent chest pains. His functional capacity is very minimal at the level of 3. No other positives. PHYSICAL EXAMINATION: Vital signs: Blood pressure 162/80, temperature 97.6 degrees, pulse 80 respirations 18. General: He is awake, alert, in no distress. HEENT: Unremarkable. Chest: Clear to auscultation and percussion. Heart: Sounds regular and rhythmic. No gallop or murmur. He has a scar of the sternotomy. Abdomen: Obese. Extremities: Showed no obvious edema. Neurologic: Nonfocal. Moves 4 extremities. Vital Signs: His body weight is 307 pounds. BMI is 35.5. IMPRESSION: 1. Patient presenting with recurrent chest pain. At this time, he does have elevation of troponin, which makes this case a case of non-ST elevation myocardial infarction/unstable angina. 2. Previous double coronary bypass surgery in August 2017 with multiple hospital admissions for recurrent chest pain. 3. Systolic/diastolic heart failure, compensated. 4. Hypertension. 5. Obesity. 6. Chronic pain syndrome with multiple thoracic and lumbar spine surgeries under pain management. RECOMMENDATION: At this time, we are putting him on Lovenox 1 mg/kg twice a day. We will add Plavix. We will obtain a myocardial perfusion stress test. If there is a significant area of ischemia, I may proceed with left heart catheterization. Benefits, risks, complications of the procedure were discussed. He understood and requested to proceed. cc: Camron Tello MD
[2019-04-29] MEDS ORDERED: LEXISCAN ONE (14:02)
--- NOTE | 2019-04-29 15:13 | Diag Imaging Result Document ---
PROCEDURE NAME: MYOCARDIAL PERF SCAN, STR/REST - 04/29/2019 STUDY: Rest/stress Lexiscan myocardial perfusion study. INDICATION: Patient with coronary heart disease, recurrent chest pain, borderline elevation of troponin. DESCRIPTION: The patient came into the nuclear laboratory, received resting injection of technetium 99 sestamibi 14.0 mCi. Multiple tomographic views of the heart were obtained at rest. Subsequently, the patient underwent infusion of Lexiscan 0.4 mg. At peak infusion, injected with technetium 99 sestamibi 46.3 mCi. Multiple tomographic views of the cardiac structures were obtained following the completion of the protocol. SUMMARY OF THE ELECTROCARDIOGRAPHIC PORTION OF THE STUDY: Resting ECG showed sinus rhythm, rate 65 beats per minute. Resting ECG showed diffuse repolarization abnormality. Blood pressure 144/84. During the protocol, the heart rate increased to 75 beats per minute, blood pressure went up to 153/88. ECG showed no significant changes. Following completion of the test, the heart rate and blood pressure returned back to baseline. In summary, electrocardiographic response to an infusion of Lexiscan is deemed to be inconclusive. SUMMARY OF THE MYOCARDIAL PERFUSION PORTION OF THE STUDY: Poststress tomographic views of the left ventricle showed a [id number] severe basal to mid anteroseptal defect. This is somewhat focal. The rest images showed partial reversibility of the defect. In addition, there is a focal basal inferior wall defect, which is severe, and the rest images showed that this defect is fixed. The polar plots revealed the same. There is a partially reversible somewhat limited in extent [id number] in severity basal to mid anteroseptal defect. In addition, there is a fixed basal inferior defect. There is partial reversibility of this aforementioned defect suggesting ischemia on top of a scar and basal inferior defect is more likely a scar. Gated SPECT on the rest images showed ejection fraction of 62%, poststress 62%. It does not change. Using the Myometrix protocol, the resting ejection fraction is 63% and poststress is 68%. That is an increase by 5%, which is normal. TID is elevated at 1.28. The lung/heart ratio is normal at 0.41. SUMMARY: This study shows: 1. Abnormal resting ECG with an inconclusive response to infusion of Lexiscan. 2. Abnormal poststress myocardial perfusion scan. There is scintigraphic suggestion of limited ischemia involving the basal to mid anteroseptal portion of the left ventricle. The apex is normally perfused. In addition, there is a focal basal inferior scar. 3. Preserved left ventricular systolic function, ejection fraction of 62% with elevation of TID. This may suggest a more extensive degree of ischemia. Clinical correlation is strongly recommended. cc: MD Kimmie Duarte PA
--- NOTE | 2019-04-29 21:35 | PROGRESS NOTE ---
DATE: 04/29/2019 SUBJECTIVE: Patient notes he is feeling okay. Still having chest pain. Denies palpitations, fevers, chills. OBJECTIVE: Vital Signs: Temperature 98, pulse 77, respiratory rate 18, BP 151/62. General: Patient is awake, alert, currently in no respiratory distress. HEENT: Normocephalic. Neck: Supple. Cardiovascular: Regular rate. Chest: Clear. Abdomen: Soft. Extremities: Moves all extremities. ASSESSMENT: 1. Chest pain, in the face of known coronary artery disease. We are going to schedule a stress test today and follow. 2. Nausea. 3. Hypertension. 4. Chronic pain. PLAN: We will continue patient in the hospital. Continue symptomatic treatment until his stress test, and then further orders after that. Will ask Cardiology for assistance. cc: Ciro Ogden MD
[2019-04-29] MEDS: MAG-OX PO SCH (21:57)
[2019-04-29] MEDS: ADALAT CC PO SCH (21:58)
[2019-04-29] MEDS: KLONOPIN PO SCH (21:58)
[2019-04-29] MEDS: ELAVIL PO SCH ×2 (21:58→22:01)
[2019-04-29] MEDS: LIPITOR PO SCH (21:58)
[2019-04-30] MEDS: MORPHINE IV PRN ×2 (02:58→07:51)
[2019-04-30] MEDS: HUMULIN R (PARKWAY) SUBQ SCH (06:22)
[2019-04-30] MEDS: PRILOSEC PO SCH (06:22)
[2019-04-30 07:40] VITALS: BP 159/80
[2019-04-30] MEDS: LOVENOX SUBQ SCH (08:35)
[2019-04-30] MEDS: ASPIRIN PO SCH (08:35)
[2019-04-30] MEDS: LYRICA PO SCH (08:35)
[2019-04-30] MEDS: PRINIVIL PO SCH (08:35)
[2019-04-30] MEDS: LOPRESSOR PO SCH (08:35)
[2019-04-30] MEDS: PLAVIX PO SCH (08:35)
--- NOTE | 2019-04-30 09:22 | ECHO REPORT ---
ORDER DATE: 04/28/2019 INDICATION: CHF. FINDINGS: This is a difficult study. The patient is 6 foot 6 and weighs 300 pounds, making image quality difficult. 1. The right atrium is moderately enlarged with a dimension of 5 cm. 2. Trace tricuspid regurgitation. RV systolic pressure of 35. 3. Poor views of the right ventricle but probable normal RV systolic function. 4. Mild pulmonic insufficiency. 5. Severe left atrial enlargement with a volume index of 54. 6. No mitral prolapse. There is mild and possibly moderate mitral regurgitation. This is an eccentric jet. 7. Normal LV size, end-diastolic dimension of 4.8. The left ventricular wall thicknesses are difficult to delineate. There is likely normal LV systolic function with an estimated EF greater than 55%. Endocardial duncan are not well visualized. 8. The aortic valve opens well with no evidence of stenosis or insufficiency. 9. There is no pericardial effusion. 10.The aorta appears enlarged in the root but may be normal based on patients body habitus. Clinical correlation is recommended. The root measures 4.3cm. cc: MD Ciro Parks MD MTDD
--- NOTE | 2019-04-30 10:31 | DISCHARGE SUMMARY ---
ADMISSION DATE: 04/28/2019 DISCHARGE DATE: 04/30/2019 PRIMARY CARE PHYSICIAN: Sharri Ku MD ADMISSION DIAGNOSES: 1. Chest pain, rule out. 2. Nausea. 3. Hypertension. 4. Coronary artery disease, history of. Aware. 5. Gastroesophageal reflux disease. 6. Chronic pain with narcotic dependency. 7. Chronic constipation. DISCHARGE DIAGNOSES: 1. [id number] myocardial infarction/unstable angina. 2. Systolic/diastolic heart failure, compensated. 3. Hypertension. 4. Obesity. 5. Chronic pain. CONSULTATION: Cardiology. TESTS PERFORMED: 1. Echocardiogram on 04/28/2019 2. Myocardial perfusion scan on 04/29/2019 showing an abnormal resting ECG with an inconclusive response to infusion of Lexiscan, suggestive of a limited ischemia involving the basal to mid anteroseptal portion of the left ventricle, showing an ejection fraction of 62% that may suggest a more extensive degree of ischemia. SUMMARY OF FINDINGS: This is a 48-year-old morbidly obese male, who presented to the emergency room with complaints of central chest pain that radiated to his bilateral shoulders, neck, and jaw with associated nausea and shortness of breath that began at 4:30 a.m. on the day of arrival and progressively worsened. Has a history of [place] with coronary artery disease, hyperlipidemia, hypertension with 6 stents placed previously. The first 2 sets of cardiac enzymes were negative but did show a trend going up toward; his 3rd set was positive at 0.179. We rechecked another set; that was at 0.132. Again, we did an echocardiogram and a myocardial perfusion scan. Cardiology was following and felt due to his positive stress test that he would need a heart catheterization and is being transferred to [facility] for a left heart catheterization. The patient left via EMS in stable condition. COORDINATION TIME: This a 35-minute discharge. Dictated by SHRUTHI Allen for Ciro Ogden MD cc: SHRUTHI Allen MD Martha Read [facility]OSPITALMacie
--- NOTE | 2019-04-30 20:30 | DISCHARGE SUMMARY ---
ADMISSION DATE: 04/28/2019 DISCHARGE DATE: 04/30/2019 ADDENDUM: Patient seen and examined by myself. Full note dictated and discussed with nurse practitioner. Patient presented to the hospital with chest pain. His cardiac enzymes were elevated. He underwent a stress test that was abnormal. Therefore, Cardiology felt it best to be transferred to [facility] for a left heart catheterization. The patient thankfully has had an uneventful hospital course otherwise. We are going to transfer him to [facility] for further evaluation. cc: Ciro Ogden MD
== END 2019-04-30 09:40 | disposition short-term general hospital (02) | DRG 281 ==
LOC: P.ED 11:03 → P.MEDSURG 15:23
PROVIDERS: ATTEND Family Medicine

== ENCOUNTER 2019-05-20 17:47 | Inpatient (IN) ==
[2019-05-20] MEDS ORDERED: ASPIRIN PO ONE (18:29)
--- NOTE | 2019-05-20 19:01 | EKG Report ---
Test Performed on : 05/20/2019 5:53:02 PM Test Reason : SOB Blood Pressure : / mmHG Vent. Rate : 068 BPM Atrial Rate : 068 BPM P-R Int : 198 ms QRS Dur : 104 ms QT Int : 412 ms P-R-T Axes : 028 007 169 degrees QTc Int : 438 ms Normal sinus rhythm. ST & T wave abnormality, consider inferolateral ischemia Abnormal ECG When compared with ECG of 05-MAY-2019 19:51, (Unconfirmed) premature ventricular complexes. are no longer present Unconfirmed Result
--- NOTE | 2019-05-20 19:24 | Diag Imaging Result Doc PS360 ---
CHEST-2 VIEWS - 05/20/2019 INDICATION: SOB COMPARISON: 05/05/2019 FINDINGS: The lungs are normally expanded and clear. Heart size and mediastinal contours are normal. No pneumothorax or pleural effusion. IMPRESSION: Negative exam. Electronically signed by Ghulam Gomes 05/20/2019 7:22 PM
[2019-05-20 19:50] LABS: BASO# 0.03 X1000 (0.0-0.2); BASO% 0.3 % (0.0-0.8); EOS# 0.18 X1000 (0.0-0.7); EOS% 1.6 % (0.0-10.0); HEMATOCRIT 42.6 % (42.0-52.0); HEMOGLOBIN 14.4 g/dL (14.0-18.0); IMM GRAN# 0.04 X1000 (0.0-0.04); IMM GRAN% 0.4 % (0.0-0.5); LYMPH% 22.5 % (20.5-51.1); MCHC 33.8 g/dL (33-37); MCV 85.9 FL (81-99); MONO# 0.62 X1000 (0.11-0.59); MONO% 5.6 % (1.7-9.3); MPV 10.6 FL (7.4-10.4); NEUT# 7.73 X1000 (1.4-6.5); NEUT% 69.6 % (42.2-75.2); PLT 287 X1000 (130-400); RBC 4.96 XMIL (4.7-6.1); RDW 15.2 % (11.5-14.5)
[2019-05-20 20:08] LABS: AGAP 13; ALB/GLOB RATIO 1.5; ALBUMIN 4.6 g/dL (3.5-5.0); ALKALINE PHOSPHATASE 82 U/L (32-122); BUN 19 mg/dL (8-22); CALCIUM 9.5 mg/dL (8.8-10.2); CHLORIDE 103 mmol/L (98-107); CK PROFILE 88 U/L (24-204); COSMO 284; CREATININE 0.7 mg/dL (0.7-1.2); ESTIMATED GFR > 60; GLUCOSE 138 mg/dL (70-104); GOT 27 U/L (10-34); GPT 19 U/L (10-44); INR 1.03; POTASSIUM 3.6 mmol/L (3.5-5.1); PROTIME 13.6 Seconds (11.0-16.0); PTT 30.1 Seconds (22.3-41.8); SODIUM 140 mmol/L (136-145); TCO2 24 mmol/L (25-35); TOTAL PROTEIN 7.6 g/dL (6.3-8.3)
[2019-05-20] MEDS ORDERED: NITROGLYCERIN TOP ONE (20:39)
--- NOTE | 2019-05-20 20:43 | PROVIDER DOCUMENTATION ---
HPI-Chest Pain - General Chief Complaint: Chest Pain Stated Complaint: CP- HEART PT SOB Time Seen by Provider: 05/20/19 20:32 Source: patient Allergies/Adverse Reactions: Patient Allergies Allergy/AdvReac Type Severity Reaction Status Date / Time methocarbamol [From Robaxin] Allergy Severe SHORTNESS Verified 08/18/18 20:26 OF BREATH prochlorperazine Allergy Severe seizures Verified 08/18/18 20:26 [From Compazine] tamsulosin [From Flomax] Allergy Severe SHORTNESS Verified 08/18/18 20:26 OF BREATH cephalexin [From Keflex] Allergy Mild RASH Verified 08/18/18 20:26 gabapentin [From Neurontin] Allergy Mild Hallucinati Verified 08/18/18 20:26 ons meperidine [From Demerol] Allergy Mild ITCHING Verified 08/18/18 20:26 Penicillins Allergy Mild RASH Verified 08/18/18 20:26 Sulfa (Sulfonamide Allergy Mild RASH Verified 08/18/18 20:26 Antibiotics) enalaprilat [From Vasotec] Allergy Unknown Unknown Verified 08/18/18 20:26 Home Medications: Home Medication List Medication Instructions Recorded Confirmed Last Taken Type Aspirin/Calcium Carbonate/Mag 325 mg PO QAM #30 tab 02/07/18 04/28/19 01/08/19 Rx [Aspirin Buffered 325 mg Tab] 325mg Clonazepam [Klonopin] 2 mg PO HS #30 tab 02/07/18 04/28/19 02/27/19 21:00 Rx Pregabalin [Lyrica] 100 mg PO TID@0900,1500,2100 #90 02/07/18 04/28/19 02/28/19 09:00 Rx capsule Metoprolol [Lopressor] 100 mg PO BID 07/08/18 04/28/19 02/28/19 09:00 History Nifedipine [Nifedipine ER] 30 mg PO QHS 07/08/18 04/28/19 02/27/19 21:00 History Amitriptyline [Elavil] 25 mg PO HS 08/18/18 04/28/19 02/27/19 21:00 History Insulin Regular, Human [Humulin R 20 units SQ AC 08/19/18 04/28/19 02/28/19 09:00 History U-500 Kwikpen] Cannabidiol (Cbd) Extract 100 mg PO HS 01/08/19 04/28/19 02/27/19 21:00 History [Epidiolex] Insulin Human NPH [Humulin N] 70 unit SUBQ BID 01/08/19 04/28/19 02/28/19 09:00 History Lisinopril 40 mg PO DAILY 01/08/19 04/28/19 02/28/19 09:00 History Magnesium 30 mg PO QHS 01/08/19 04/28/19 02/27/19 21:00 History Omeprazole 40 mg PO BID 01/08/19 04/28/19 02/28/19 09:00 History Potassium Chloride 99 mg PO QHS 01/08/19 04/28/19 02/27/19 21:00 History ATORVAstatin [Lipitor] 80 mg PO DAILY 04/28/19 04/28/19 Unknown History Hydrochlorothiazide 50 mg PO DAILY 04/28/19 04/28/19 Unknown History Oxycodone HCl/Acetaminophen 1 tab PO TID PRN PRN 04/28/19 04/28/19 Unknown History [Percocet 10-325 mg Tablet] - History of Present Illness-CP Nature of Presenting Problem: 49yom presents to ED c/o SOB x3 days with weight gain which is c/w prior acute CHF following cardiac stent placement 10 days ago. 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 He states his dyspnea is worsened by exertion. He denies syncope, LOC, chest pain, back pain, abd pain. He states he is on Effient. He also reports a history of CABG in 2017. Chest Pain Radiation: reports: no radiation Quality of Pain: reports: none Severity in ED: moderate Onset/Duration: gradual, 2 days ago Context/Activities at Onset: reports: none Modifying Factors: improves with: nothing, movement Associated Symptoms: reports: denies symptoms Nitro Today/Relief: no nitro taken today Aspirin Treatment Today: no aspirin today Prior Chest Pain/Cardiac Workup: reports: other (cardiac stent 10 days ago) Similar Symptoms Previously?: Yes Recently Seen Here or By Another Healthcare Provider: Yes Review of Systems - Adult - REVIEW OF SYSTEMS - ADULT Constitutional: reports: no symptoms reported Eyes: reports: no symptoms reported Ears, Nose, Mouth & Throat: reports: no symptoms reported Cardiovascular: reports: no symptoms reported Respiratory: reports: see HPI, shortness of breath Gastrointestinal: reports: no symptoms reported. denies: abdominal pain, nausea, vomiting Genitourinary: reports: no symptoms reported Musculoskeletal: reports: no symptoms reported Integumentary: reports: no symptoms reported Neurological: reports: no symptoms reported Psychiatric: reports: no symptoms reported Endocrine: reports: no symptoms reported Hematologic/Lymphatic: reports: no symptoms reported Allergic/Immunologic: reports: no symptoms reported All Other Systems: Reviewed and Negative Past History - Adult - PAST MEDICAL HISTORY-ADULT Review of Records: reports: Old Records Reviewed, Nursing Assessment Review, Medications Reviewed, Social history reviewed & non-contributory. Major Childhood Illnesses: reports: denies history Cardiovascular: reports: CAD, HTN, hyperlipidemia, [place], other (6 stents) Respiratory: reports: denies history Gastrointestinal: reports: GERD Obstetrical/Gynecological: reports: denies history Genitourinary: reports: kidney disease Musculoskeletal: reports: denies history Neurological: reports: denies history Endocrine/Immune: reports: Diabetes Other Conditions: reports: denies history - PRIOR SURGERIES/PROCEDURES Surgical/Procedure History: reports: CABG (bypass x2 09/04/17), cholecystectomy, cardiac stent (x6), tonsillectomy, back/neck - IMMUNIZATION STATUS Childhood Immunizations: See Nurse Assessment Flu Vaccine: See Nurse Assessment - FAMILY HISTORY Family History: other (father and mother [place], father quadruple bypass) - SOCIAL HISTORY Smoking: non-smoker Living Situation: family Physical Exam-General - PHYSICAL EXAM-ADULT Initial Vital Signs Reviewed: Yes - CONSTITUTIONAL General Appearance: appears well, alert, no apparent distress - EYES Eyes: PERRL/EOMI, pink conjunctivae - HEAD, EARS, NOSE, MOUTH & THROAT HENMT: normocephalic/atraumatic, moist mucous membranes, normal ENT inspection, TMs normal, pharynx normal - NECK Neck: non-tender, full range of motion, supple, normal inspection - RESPIRATORY Respiratory: chest non-tender, lungs clear, normal breath sounds, no pleuratic chest pain, no respiratory distress, no accessory muscle use - CARDIOVASCULAR Cardiovascular: normal peripheral pulses, regular rate, rhythm, no edema, no gallop, no JVD, no murmur - GASTROINTESTINAL (ABDOMEN) Abdominal Exam: normal bowel sounds, non tender, soft, no organomegaly, no pulsa tile mass - LYMPHATIC Lymphatic: no adenopathy - MUSCULOSKELETAL Back Exam: normal inspection, no CVA tenderness, no vertebral tenderness Extremity: normal range of motion, non-tender, normal gait, pedal edema (2+ to ankles/feet) Peripheral Pulses: radial (R): 4+, radial (L): 4+, dorsalis-pedis (R): 4+, dorsalis-pedis (L): 4+ - SKIN Integumentary: normal color, normal turgor, warm/dry - NEUROLOGIC Neurologic: 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, grossly normal, no motor/sensory deficits - PSYCHIATRIC Psych/Mental Status: normal mood/affect, normal thought content, normal thought process, oriented x 3 - HEART Score HEART Score: History: Moderately Suspicious HEART Score: ECG: Non-Specific Repolarization Disturbance/LBBB/PM HEART Score: Age: 45-65 Years HEART Score: Risk Factors for Atherosclerotic Disease: > or = 3 Risk Factors or History of Atherosclerotic Disease HEART Score: Troponin: < or = Normal Limit Total HEART Score:: 5 Progress - PLAN OF CARE/RESULTS Progress/Plan/Lab Results: Vital Signs - 8 hr 05/20/19 18:09 05/20/19 19:16 Temperature 98.1 F 97.5 F L Pulse Rate 68 62 Respiratory Rate 18 20 Blood Pressure 155/87 154/91 O2 Sat by Pulse Oximetry 96 99 Laboratory Results - last 24 hr 05/20/19 05/20/19 05/20/19 19:26 19:26 19:26 WBC 11.10 H RBC 4.96 Hgb 14.4 Hct 42.6 MCV 85.9 MCH 29.0 MCHC 33.8 RDW Std Deviation 15.2 H Plt Count 287 MPV 10.6 H Immature Gran % (Auto) 0.4 Neut % (Auto) 69.6 Lymph % (Auto) 22.5 Chase % (Auto) 5.6 Eos % (Auto) 1.6 Baso % (Auto) 0.3 Immature Gran # (Auto) 0.04 Neut # (Auto) 7.73 H Lymph # (Auto) 2.50 Chase # (Auto) 0.62 H Eos # (Auto) 0.18 Baso # (Auto) 0.03 PT INR PTT (Actin FS) Sodium 140 Potassium 3.6 Chloride 103 Carbon Dioxide 24 L Anion Gap 13 BUN 19 Creatinine 0.7 Estimated GFR/1.73 m2 > 60 BUN/Creatinine Ratio 27 Glucose 138 H Calculated Osmolality 284 Calcium 9.5 Total Bilirubin 0.40 AST 27 ALT 19 Alkaline Phosphatase 82 Creatine Kinase 88 Troponin T Nia-Q-Eknfxivyiep Pept 463 H Total Protein 7.6 Albumin 4.6 Globulin 3.0 Albumin/Globulin Ratio 1.5 05/20/19 05/20/19 19:26 19:26 WBC RBC Hgb Hct MCV MCH MCHC RDW Std Deviation Plt Count MPV Immature Gran % (Auto) Neut % (Auto) Lymph % (Auto) Chase % (Auto) Eos % (Auto) Baso % (Auto) Immature Gran # (Auto) Neut # (Auto) Lymph # (Auto) Chase # (Auto) Eos # (Auto) Baso # (Auto) PT 13.6 INR 1.03 PTT (Actin FS) 30.1 Sodium Potassium Chloride Carbon Dioxide Anion Gap BUN Creatinine Estimated GFR/1.73 m2 BUN/Creatinine Ratio Glucose Calculated Osmolality Calcium Total Bilirubin AST ALT Alkaline Phosphatase Creatine Kinase Troponin T < 0.010 [id number] Pept Total Protein Albumin Globulin Albumin/Globulin Ratio Orders Category Date Time Status Cardiac Monitoring DIRECTED Care 05/20/19 18:29 Active Saline Loc NOW Care 05/20/19 18:29 Active CHEST-2 VIEWS [RAD] Stat Exams 05/20/19 18:29 Completed CBC WITH ELECTRONIC DIFF [HEME] Stat Lab 05/20/19 19:26 Completed CK PROFILE [SP CHEM] Stat Lab 05/20/19 19:26 Completed COMPREHENSIVE METABOLIC PANEL [CHEM] Stat Lab 05/20/19 19:26 Completed PRO B-NATRIURETIC PEPTIDE Stat Lab 05/20/19 19:26 Completed PROTIME WITH INR [COAG] Stat Lab 05/20/19 19:26 Completed PTT [COAG] Stat Lab 05/20/19 19:26 Completed TROPONIN T Stat Lab 05/20/19 19:26 Completed TROPONIN T Stat Lab 05/20/19 20:38 Uncollected Aspirin Med 05/20/19 18:29 Discontinued 325 mg PO NOW ONE Nitroglycerin Med 05/20/19 20:39 Discontinued 1 inch TOP NOW ONE CP/SOB/Palp >45 yrs of Age Stat Oth 05/20/19 18:29 Ordered EKG [EKG] Stat Ther 05/20/19 18:29 Draft EKG [EKG] Stat Ther 05/20/19 20:38 Ordered Result Diagrams: 05/20/19 19:26 05/20/19 19:26 - REASSESSMENT Reassessment #1 Time Reassessed: 21:16 (Spoke with Dr. Joshi, he recommends admit to hospitalist here and consult him.) Reassessment #2 Time Reassessed: 21:17 (Discussed pt with Dr. Srivastava, he agrees with admit and cardiology consult.) Departure - Departure Date of Disposition Decision: 05/20/19 Time of Disposition Decision: 21:26 DIAGNOSIS: Dyspnea Qualifiers: Dyspnea type: unspecified Qualified Code(s): R06.00 - Dyspnea, unspecified CAD (coronary artery disease) Qualifiers: Coronary Disease-Associated Artery/Lesion type: unspecified vessel or lesion type Disposition: ADMITTED INPATIENT 09 Certified Medical Emergency: Emergent Condition: Stable Referrals and Follow-Ups: Sharri Ku MD [Primary Care Provider] - - Critical Care Note This patient required my direct & personal management of CC.: No Attestation - Physician/ ABILIO Attestation Patient care was provided by Advanced Practice Provider:: Yes Advanced Practice Provider:: Sally Peñaloza Advanced Practice Provider documentation review:: The Mid-level provider documentation, treatment plan and medical decision making was reviewed by the physician who agrees with all treatment and medical decision making by the MLP. The physician spent face to face time with patient:: No Advanced Practice Provider documentation review:: Supervising physician onsite and consulted in the evaluation and care of this patient. The physician did not have a face to face encounter with the patient.
[2019-05-20] MEDS ORDERED: LASIX IV ONE (22:28)
[2019-05-20] MEDS ORDERED: PHENERGAN IM ONE (22:52)
[2019-05-20] MEDS ORDERED: MORPHINE IV ONE (22:52)
[2019-05-20] MEDS ORDERED: KLOR-CON PO ONE (22:59)
[2019-05-20 23:28] LABS: HEMOGLOBIN A1C 7.5 % (4.8-6.0)
[2019-05-21] MEDS: NITROGLYCERIN TOP SCH ×4 (00:56→17:24)
[2019-05-21] MEDS: LOVENOX SUBQ SCH ×2 (00:56→23:29)
[2019-05-21] MEDS: TYLENOL PO PRN (00:56)
--- NOTE | 2019-05-21 05:01 | HISTORY AND PHYSICAL ---
CHIEF COMPLAINT: Shortness of breath and chest pain. HISTORY OF PRESENT ILLNESS: Mr. Polanco is a 49-year-old male who has a history of coronary artery disease. He had cardiac stenting from what i understand around 2 wks ago. He stated that after he returned home from the hospital stay the night after he got back home he woke up that night with chest pain again. Today the chest pain has been off-and-on, intermittent. He has also had dyspnea with exertion. The chest pain is worse when he is active, gets better with sitting. Also has complaint of lower extremity edema. He states that he has been taking the Lasix that was given to him by Cardiology, however, it has not had a lot of effect. Initial testing in the emergency room is negative. His proBNP is mildly elevated. Chest x-ray is clear. He will be put in observation status for further evaluation and treatment. PAST MEDICAL HISTORY: Coronary artery disease with previous stenting, hypertension, hyperlipidemia, gastroparesis, insulin-dependent diabetes mellitus, history of chronic back pain, GERD, chronic narcotic use, chronic constipation. PREVIOUS SURGICAL HISTORY: Coronary artery bypass grafting in 2017, cardiac stenting, multiple spinal surgeries with placement of a neurospinal stimulator in his lower back, tonsillectomy, cholecystectomy. SOCIAL HISTORY: On disability. Lives with his . No tobacco, alcohol, or illicit drugs. FAMILY HISTORY: Mother and father both had coronary artery disease and CABG. Father had unspecified cancer. Both grandparents, maternal and paternal, had diabetes and coronary artery disease. ALLERGIES: NEURONTIN, KEFLEX, VASOTEC, DEMEROL, ROBAXIN, PENICILLIN, COMPAZINE, AND FLOMAX. HOME MEDICATIONS: The list of home medications has not been reconciled. Order was placed for nursing reconcile of medications. These will be restarted when appropriate. REVIEW OF SYSTEMS: A 14 point review of systems conducted with the patient. Pertinent positives listed above in the HPI. He also admitted to nausea with no vomiting. All other systems reviewed and found to be negative. PHYSICAL EXAMINATION: VITAL SIGNS: Temperature 97.5, pulse 62, respirations 20, blood pressure 157/91, oxygen saturation 99% on room air. GENERAL: A 49-year-old male lying on the ER stretcher. Answers all questions appropriately. He is alert and oriented x3. HEENT: Head is atraumatic, normocephalic. Pupils equal, round, react to light. Extraocular eye movements intact. Sclerae anicteric. Conjunctivae pink. Oral mucosa is moist. NECK: Supple. No JVD. No hepatojugular reflex. Trachea is midline. No cervical lymphadenopathy. CARDIAC: S1, S2 appreciated. No murmurs, gallops, rubs. LUNGS: Clear to auscultation bilaterally. No rhonchi, wheezes, rales. Symmetrical rise and fall respirations. ABDOMEN: Protuberant. Soft, nondistended, nontender. Bowel sounds present all 4 quadrants, normoactive. No pulsatile mass or organomegaly. EXTREMITIES: Trace pitting edema bilateral lower extremities. No clubbing or cyanosis. 2+ pedal pulses bilaterally. GENITOURINARY: No bladder distention. Patient voids otherwise. NEUROLOGICAL: Alert and oriented x3. No focal motor deficits. Otherwise nonfocal examination. DIAGNOSTIC DATA: Chest x-ray no acute disease. LABORATORY DATA: WBC 11.10, hemoglobin 14.4, hematocrit 42.6, platelet count 287. Coags within normal limits. Sodium 140, potassium 2.6, chloride 103, carbon dioxide 24, BUN 19, creatinine 0.7, glucose 138. Troponin less than 0.010. ProBNP 463. ASSESSMENT AND PLAN: 1. Chest pain, rule out acute myocardial infarction. Will consult Dr. Joshi. Check a lipid profile. Check hemoglobin A1c. Nitroglycerin 0.5 transdermally q.6h. Continue home medications once reconciled. 2. Nausea. Will give Phenergan. 3. Hypertension. Continue home medications. Will add nitroglycerin, also give 40 of Lasix now. 4. Coronary artery disease with history of stenting, aware. 5. Gastroesophageal reflux disease. Continue home medications. 6. Chronic pain with narcotics dependency. Will continue home medications. 7. Further recommendations based patient's clinical course. Dictated by SHRUTHI Loco for Maggie Srivastava MD cc: SHRUTHI Loco MD Sharri Read Independent exam and assessment performed at bedside and was only notable for 1+ edema. Pt may have mild diastolic HF and will benefit from using Lasix scheduled as opposed to PRN use. MTDD
--- NOTE | 2019-05-21 05:15 | EKG Report ---
Test Performed on : 05/21/2019 03:39:13 AM Test Reason : CP Blood Pressure : / mmHG Vent. Rate : 075 BPM Atrial Rate : 075 BPM P-R Int : 182 ms QRS Dur : 102 ms QT Int : 434 ms P-R-T Axes : 045 063 263 degrees QTc Int : 484 ms Sinus rhythm. with frequent premature ventricular complexes. ST & T wave abnormality, consider inferolateral ischemia Prolonged QT Abnormal ECG When compared with ECG of 20-MAY-2019 17:53, (Unconfirmed) premature ventricular complexes. are now present Questionable change in QRS axis T wave inversion more evident in Inferior leads Confirmed by Jaylene PHOENIX, Renny Longoria ([id number]) on 05/21/2019 5:15:31 PM
[2019-05-21] MEDS: MORPHINE IV PRN ×5 (05:57→23:30)
[2019-05-21 06:36] LABS: AGAP 14; BUN 18 mg/dL (8-22); CALCIUM 8.3 mg/dL (8.8-10.2); CHLORIDE 103 mmol/L (98-107); COSMO 291; CREATININE 0.7 mg/dL (0.7-1.2); ESTIMATED GFR > 60; GLUCOSE 270 mg/dL (70-104); POTASSIUM 3.7 mmol/L (3.5-5.1); SODIUM 140 mmol/L (136-145); TCO2 23 mmol/L (25-35)
--- NOTE | 2019-05-21 07:04 | EKG Report ---
Test Performed on : 05/21/2019 06:35:16 AM Test Reason : chest pain Blood Pressure : / mmHG Vent. Rate : 067 BPM Atrial Rate : 067 BPM P-R Int : 188 ms QRS Dur : 104 ms QT Int : 424 ms P-R-T Axes : 033 011 154 degrees QTc Int : 448 ms Normal sinus rhythm. T wave abnormality, consider inferolateral ischemia Abnormal ECG When compared with ECG of 21-MAY-2019 03:39, (Unconfirmed) premature ventricular complexes. are no longer present Confirmed by Jaylene PHOENIX, Renny Longoria ([id number]) on 05/23/2019 6:01:55 AM
[2019-05-21] MEDS ORDERED: IMDUR PO SCH (09:00)
[2019-05-21] MEDS: HUMALOG SUBQ SCH ×3 (10:25→17:13)
[2019-05-21] MEDS: LYRICA PO SCH ×3 (10:39→21:11)
[2019-05-21] MEDS: HYDROCHLOROTHIAZIDE PO SCH (10:39)
[2019-05-21] MEDS: EFFIENT PO SCH (10:39)
[2019-05-21] MEDS: PRILOSEC PO SCH ×2 (10:39→21:11)
[2019-05-21] MEDS: PRINIVIL PO SCH (10:39)
[2019-05-21] MEDS: LOPRESSOR PO SCH ×2 (10:40→21:10)
[2019-05-21] MEDS: LIPITOR PO SCH (10:40)
[2019-05-21] MEDS: HUMULIN N SUBQ SCH ×2 (10:40→21:14)
[2019-05-21] MEDS: REGLAN PO SCH ×3 (10:45→21:11)
[2019-05-21] MEDS: LASIX IV SCH (11:41)
[2019-05-21] MEDS: HUMULIN R SUBQ SCH ×2 (12:24→17:25)
--- NOTE | 2019-05-21 12:36 | Diag Imaging Result Doc PS360 ---
EXAM: CT THORAX W/O CONTRAST 05/21/2019 HISTORY: cough TECHNIQUE: This exam was performed using automated exposure control, adjustment of mA or kV according to patient size, and/or use of iterative reconstruction technique. COMMENT: There are rods in the cervical spine and there has been previous sternotomy. These findings were also present on 02/03/2018. There is bilateral gynecomastia. There are no abnormal fluid collections. There is some herniation of lung along the chest wall between the seventh and eighth ribs on the right. This has not changed since the previous study. There is extensive coronary calcification. There are fibrotic appearing opacities in the medial portion of the right lower lobe which were also apparently present on the previous study. The pleural fluid collections which were present previously are no longer present. Otherwise there is no evidence of acute pulmonary disease. IMPRESSION: No evidence of acute disease. Electronically signed by Easton Franklin 05/21/2019 12:34 PM
--- NOTE | 2019-05-21 12:45 | PROGRESS NOTE ---
DATE: 05/21/2019 SUBJECTIVE: The patient is not complaining of any chest pain. The left toe and the lower extremity swelling is definitely much better. OBJECTIVE: Vital Signs: Temperature 97.6, heart rate 66, respiratory rate 19, blood pressure 166/89, O2 saturation 95% on room air. General examination: This is a 49-year-old male, lying in bed in no acute distress. Cardiovascular exam: S1, S2 heard. No murmurs, gallops, or rubs. Regular rate and rhythm. Respiratory exam: Clear bilaterally to auscultation. No work of breathing or using accessory muscles. Abdomen: Soft, a little bit distended, but nontender to palpation. Bowel sounds present. No organomegaly. Extremities: No clubbing, cyanosis or edema. Peripheral pulses present in both legs. Neurological exam: Patient is alert and oriented x3. Moves 4 extremities. LABORATORY DATA: We have checked troponins 3 times and those have been negative so far. ASSESSMENT AND PLAN: 1. Coronary artery disease with recent stent placed 2 weeks ago. The patient has been admitted to the hospital for chest pain. He had 2 stents placed 2 weeks ago. We have checked so far 3 times troponins; those are negative. At this point, we have consulted Cardiology; will see what they have to say. We will tentatively place a Lexiscan stress test if needed, but we will follow recommendations from Cardiology. 2. Hypertension. Blood pressure is under control. We will continue with same management. 3. Coronary artery disease with history of stenting as we mentioned above. 4. Chronic pain with narcotic dependence. We will continue home medications. 5. Disposition: We are following a lead from Cardiology. cc: Getachew Cerda MD
[2019-05-21] MEDS: KLONOPIN PO SCH (21:10)
[2019-05-21] MEDS: PROCARDIA ER PO SCH (21:11)
[2019-05-22] MEDS: HUMALOG SUBQ SCH ×5 (03:48→21:55)
[2019-05-22] MEDS: PATIENT'S OWN MED PO SCH ×6 (03:49→20:49)
[2019-05-22] MEDS: MORPHINE IV PRN ×4 (04:03→20:22)
--- NOTE | 2019-05-22 05:17 | CONSULTATION ---
DATE OF CONSULTATION: 05/21/2019 IMPRESSION: 1. Recurrent substernal chest discomfort possibly angina. 2. Some tendency for congestive heart failure with preserved left ventricular ejection fraction probably multifactorial in origin. 3. Atherosclerotic coronary disease status post several previous coronary intervention on left anterior descending coronary artery in the past. 4. Status post coronary bypass grafting 2017 with free internal mammary artery graft to left anterior descending coronary and saphenous vein graft to the posterior descending artery. 5. Due to chronic recurrent chest discomfort, the patient has had repeat evaluations and had diagnostic coronary angiography performed at [facility] which reported patent free mammary graft to left anterior descending coronary artery, mild atherosclerotic narrowing in left circumflex coronary artery, occluded posterior descending artery, and patent saphenous vein graft to distal right carotid. 6. Patient admitted with recurrent chest pain and mild nonspecific elevation in troponin's approximately 2 weeks ago. He subsequently had coronary angioplasty/stenting of left circumflex coronary artery with drug-eluting stent. Chest pain at that time characterized as central chest discomfort that would extend up in his neck and jaw. 7. Tendency for chronic recurrent chest pain on multiple occasions without objective evidence of ischemia. 8. Mixed hyperlipidemia. 9. Severe chronic back disorder with severe chronic back pain requiring long-term narcotic use. 10. Diabetes mellitus type 2 with associated gastroparesis. 11. Hypertension. RECOMMENDATIONS: 1. Serial cardiac enzymes. 2. Maximize medical therapy for coronary atherosclerosis. 3. Given the propensity for recurrent chest discomfort and recent coronary angioplasty/stent procedure of left circumflex coronary, it would be most prudent to pursue repeat coronary angiography for definitive evaluation of recurrent chest symptoms. It also appears in the recent coronary angiography report that free mammary artery graft to left anterior descending coronary was not imaged, and repeat coronary angiography would facilitate this as well. The rationale for repeat cardiac catheterization/coronary angiography was discussed with the patient along with potential hazards and he wished to proceed. HISTORY: This 49-year-old white male with an extensive past history for coronary atherosclerosis as outlined above, chronic back disorder requiring chronic narcotics, type 2 diabetes mellitus, gastroparesis, hypertension, and mixed hyperlipidemia as well as obstructive sleep apnea was admitted to emergency room with recurrent chest discomfort. Recent history is noteworthy in that he was hospitalized 2 weeks ago with recurrent substernal chest discomfort that extended up into his neck and jaw. He describes discomfort as a tightness that may extend up in his neck and jaw. The discomfort seems to be associated at times with momentary palpitations. He was hospitalized 2 weeks ago with such discomfort, and subsequent serial troponin's demonstrated a slight rise in troponin to a nonspecific range. He was referred to [facility] for further evaluation and ultimately had coronary angiography/stenting of left circumflex coronary with drug-eluting stent. It is noteworthy that he had had coronary angiography in August of 2019 at [facility] which reported mild coronary atherosclerosis in the left circumflex coronary artery. He was rehospitalized briefly there with shortness of breath and some peripheral swelling. He was treated with Lasix for congestive heart failure. Brilinta was stopped and switched to Effient. He was discharged and since then has had occasional substernal chest discomfort. He recently had some increase in chest discomfort, but without radiation to the neck and jaw. He has also had some tendency for peripheral swelling and some shortness of breath. This seems to re-emerge quite readily even after he uses diuretic therapy with Lasix. PAST MEDICAL HISTORY: 1. Atherosclerotic coronary disease as outlined above. 2. Chronic back disorder with chronic back pain requiring narcotics. 3. Hypertension. 4. Obstructive sleep apnea. 5. Mixed hyperlipidemia. PAST SURGICAL HISTORY: 1. Extensive spine surgery in the past. 2. Coronary bypass grafting in August of 2017. 3. Tonsillectomy. 4. Cholecystectomy. 5. Previous neuro spinal stimulator. ALLERGIES: He has multiple drug allergies as listed. SOCIAL HISTORY: He is living with girlfriend. He is disabled from his back. He does not smoke or use alcohol. FAMILY HISTORY: Positive for coronary disease. REVIEW OF SYSTEMS: Pulmonary: Noncontributory beyond history of present illness. Constitutional: Noncontributory beyond history of present illness. Gastrointestinal: Noncontributory beyond history of present illness. Remainder of review of systems negative/noncontributory beyond history of present illness with 14 total systems reviewed. PHYSICAL EXAMINATION: General: This is an obese middle-aged white male in no distress. Vital signs: Blood pressure 153/77, heart rate 75, and oxygen saturation 100% on room air. HEENT: Extraocular movements appear intact. Mucous membranes moist. Neck: Supple without jugular venous distention. There are no carotid bruits. Chest: Clear to auscultation bilaterally. Cardiac: Exam reveals a regular rate and rhythm without appreciable murmur or gallop. Abdomen: Soft. Bowel sounds are normal. Extremities: Demonstrate trace edema bilaterally. Neurologic: Reveals him to be alert and fully oriented. Speech is fluent. Moves all 4 extremities equally well. Skin: Warm and dry. Psychiatric: Reveals him to be somewhat anxious. DATA: Twelve lead EKG demonstrates sinus rhythm with frequent premature ventricular complexes. ST and T-wave abnormality, consider inferolateral ischemia and borderline prolonged QT interval. LABORATORY DATA: White blood cell count 11.1, hematocrit 42.6, hemoglobin 14.4, and platelet count 287,000. Sodium 140, potassium 3.7, and chloride 103. Carbon dioxide 23, BUN 18, and creatinine 0.7. Glucose 270. Initial troponin less than 0.01. Followup troponin less than 0.01. CPK 88. Followup CPK 57. Triglycerides 697. Total cholesterol 167. LDL cholesterol direct measurement 62. HDL cholesterol 20. cc: Michi Joshi MD
[2019-05-22] MEDS: REGLAN PO SCH ×4 (06:14→20:26)
[2019-05-22 06:37] LABS: BASO# 0.03 X1000 (0.0-0.2); BASO% 0.3 % (0.0-0.8); EOS# 0.19 X1000 (0.0-0.7); EOS% 1.9 % (0.0-10.0); HEMATOCRIT 40.4 % (42.0-52.0); HEMOGLOBIN 13.8 g/dL (14.0-18.0); IMM GRAN# 0.03 X1000 (0.0-0.04); IMM GRAN% 0.3 % (0.0-0.5); LYMPH# 2.36 X1000 (1.2-3.4); LYMPH% 24.1 % (20.5-51.1); MCH 29.5 PG (27-31); MCHC 34.2 g/dL (33-37); MCV 86.3 FL (81-99); MONO# 0.62 X1000 (0.11-0.59); MONO% 6.3 % (1.7-9.3); MPV 10.7 FL (7.4-10.4); NEUT# 6.55 X1000 (1.4-6.5); NEUT% 67.1 % (42.2-75.2); PLT 244 X1000 (130-400); RBC 4.68 XMIL (4.7-6.1); WBC 9.78 X1000 (4.8-10.8)
[2019-05-22 06:59] LABS: AGAP 15; BUN 19 mg/dL (8-22); CALCIUM 8.4 mg/dL (8.8-10.2); CHLORIDE 100 mmol/L (98-107); COSMO 280; CREATININE 0.7 mg/dL (0.7-1.2); ESTIMATED GFR > 60; GLUCOSE 135 mg/dL (70-104); POTASSIUM 3.3 mmol/L (3.5-5.1); SODIUM 138 mmol/L (136-145); TCO2 23 mmol/L (25-35)
--- NOTE | 2019-05-22 08:57 | EKG Report ---
Test Performed on : 05/22/2019 08:47:18 AM Test Reason : standing order Blood Pressure : / mmHG Vent. Rate : 069 BPM Atrial Rate : 069 BPM P-R Int : 196 ms QRS Dur : 110 ms QT Int : 434 ms P-R-T Axes : 029 022 184 degrees QTc Int : 465 ms Normal sinus rhythm. Left atrial enlargement Left ventricular hypertrophy T wave abnormality, consider inferolateral ischemia Prolonged QT Abnormal ECG When compared with ECG of 21-MAY-2019 06:35, (Unconfirmed) No significant change was found Confirmed by Jaylene PHOENIX, Renny Longoria ([id number]) on 05/23/2019 6:03:02 AM
[2019-05-22] MEDS: LASIX IV SCH (12:42)
[2019-05-22] MEDS: HUMULIN R SUBQ SCH ×3 (12:53→16:38)
[2019-05-22] MEDS: HUMULIN N SUBQ SCH ×2 (12:54→20:48)
[2019-05-22] MEDS: EFFIENT PO SCH (12:55)
[2019-05-22] MEDS ORDERED: HEPARIN 1000 UNITS/NS 2,000 UNIT/1,000 ML IV.SOLN ONE (13:15)
--- NOTE | 2019-05-22 13:16 | PROGRESS NOTE ---
DATE: 05/22/2019 SUBJECTIVE: The patient reports still having some chest pressure that is still present but not as it was on admission. OBJECTIVE: Vital Signs: Temperature 98.6 degrees, heart rate 73, respiratory rate 16, blood pressure 145/64, and O2 saturation 95% on room air. General: This is a 49-year-old male lying in bed in no acute distress. Cardiovascular: S1, S2 heard. No murmurs, gallops, or rubs. Regular rate and rhythm. Respiratory: Clear bilaterally to auscultation. No work of breathing or using accessory muscles. Abdomen: Soft, nontender to palpation. Bowel sounds present. No organomegaly. Extremities: No clubbing, cyanosis, or edema. Peripheral pulses present in both legs. Neurological: Patient is alert and oriented x3. Moves 4 extremities. LABORATORY DATA: Reviewed. ASSESSMENT AND PLAN: 1. Chest pain. The patient with coronary artery disease with recent stent placed 2 weeks ago. The patient has been evaluated by Cardiology, and they are planning to do a left heart catheterization today. We will see what it shows. We will go from there. 2. Hypertension. Blood pressure is under control. We will continue with the same medications. 3. Chronic pain with narcotic dependence. We will continue home medications. 4. Disposition. We are following the lead from Cardiology. We will see what this left heart catheterization shows, and we will go from there. cc: Getachew Cerda MD
[2019-05-22] MEDS ORDERED: XYLOCAINE 1% ONE (13:21)
[2019-05-22] MEDS ORDERED: DILAUDID ONE ×2 (14:01→14:51)
[2019-05-22] MEDS ORDERED: VERSED ONE (14:01)
[2019-05-22] MEDS ORDERED: ANESTHESIA PB SET 88 IN 5742 ONE (14:02)
[2019-05-22] MEDS ORDERED: NS 1,000 ML ONE (14:02)
[2019-05-22] MEDS ORDERED: CLAVE TWINSITE 32 IN 11959 ONE (14:02)
[2019-05-22] MEDS ORDERED: APRESOLINE ONE (14:43)
--- NOTE | 2019-05-22 15:30 | CARDIAC CATH REPORT ---
PROCEDURE NAME: - INDICATION FOR PROCEDURES: Unstable angina, history of PCI, as well as coronary bypass. PROCEDURES PERFORMED: 1. Left heart catheterization. 2. Selective coronary angiography. 3. Left ventriculogram. 4. Free PHUC angiography. 5. Saphenous vein graft angiography. PROCEDURE IN DETAIL: Mr. Polanco was brought to the catheterization laboratory in fasting state. Informed consent was obtained. Prepped in usual fashion. He was anesthetized over the right femoral artery. A 5-[place] sheath was placed via modified Seldinger technique. Catheters were introduced. Hemodynamic measurements were made in the ascending thoracic aorta. Coronary angiography was performed in multiple views using a JL4 and a JR4. Left heart catheterization, left ventriculogram, free PHUC angiography, as well as the saphenous vein graft angiography was performed using the JR4. At the conclusion of the procedure all sheaths and catheters were removed. Pressure was held. IV CONTRAST: 135 mL. BLOOD LOSS: 5-10 mL. COMPLICATIONS: No apparent complications. FINDINGS: 1. The left main originates from the left coronary cusp. It is short and has a distal 10 to 20% lesion. 2. Left anterior descending originates from the left main. Heavy calcifications are noted in the proximal vessel with severe in-stent stenosis. The vessel is occluded in the mid vessel at the site of a previous stent. The remainder of the mid and distal vessel is seen via injection of the free PHUC which backfills to the occluded stent. It is a small left anterior descending at that point. The free PHUC appears relatively normal. There is severe disease at the origin of a first diagonal with severe ostial disease in that diagonal. This is a relatively small vessel. 3. Circumflex originates from the left main. There appears to be a patent proximal stent with ostial 10 to 20% disease in an obtuse marginal. 4. Right coronary is occluded in the proximal vessel with severe disease noted in an RV branch. Severe ostial disease in an RV branch. This is a relatively small vessel. 5. The free PHUC is visualized and appears normal. 6. Saphenous vein graft to the PDA has 40 to 50% proximal disease and a somewhat ectatic vessel with 50 to 60% distal disease and again, somewhat ectatic. The SVG to the PDA supplies an extremely small PDA territory. The majority of the right coronary actually seems to be visualized through left to right collaterals. 7. The ejection fraction was noted to be 65% with normal wall motion. 8. Aortic blood pressure 142/81 with a mean of 106. Left ventricle pressure 142/13 with an LVEDP of 19. ASSESSMENT: Mr. Polanco is a 49-year-old male with a history of severe coronary disease, coronary bypass grafting, who presented with continued chest pain, recent PCI. PLAN: He does not appear to have any significant lesions that are amenable to intervention. He is noted to have severe disease in the territory of the left anterior descending as well as the right coronary. It does not seem to be amenable to intervention. His free PHUC and vein graft appear to be patent. Medical management to ensue. cc: Ruperto Nathan MD
--- NOTE | 2019-05-22 16:08 | EKG Report ---
Test Performed on : 05/22/2019 3:58:36 PM Test Reason : post heart cath Blood Pressure : / mmHG Vent. Rate : 085 BPM Atrial Rate : 085 BPM P-R Int : 192 ms QRS Dur : 106 ms QT Int : 408 ms P-R-T Axes : 048 070 -75 degrees QTc Int : 485 ms Normal sinus rhythm. Left atrial enlargement ST & T wave abnormality, consider inferior ischemia Prolonged QT Abnormal ECG When compared with ECG of 22-MAY-2019 08:47, (Unconfirmed) No significant change was found Confirmed by Jaylene PHOENIX, Renny Longoria ([id number]) on 05/23/2019 9:00:06 AM
[2019-05-22] MEDS: HYDROCHLOROTHIAZIDE PO SCH (16:34)
[2019-05-22] MEDS: ZOFRAN IV PRN ×2 (16:34→20:48)
[2019-05-22] MEDS: PRINIVIL PO SCH (16:35)
[2019-05-22] MEDS: IMDUR PO SCH (16:35)
[2019-05-22] MEDS: LIPITOR PO SCH (16:35)
[2019-05-22] MEDS: LYRICA PO SCH ×3 (16:36→20:25)
[2019-05-22] MEDS: PRILOSEC PO SCH ×2 (16:56→20:26)
[2019-05-22] MEDS: LOPRESSOR PO SCH ×2 (16:56→20:26)
[2019-05-22] MEDS ORDERED: PHENERGAN IV PRN (18:21)
[2019-05-22] MEDS ORDERED: BENADRYL PO PRN ×2 (18:21→18:35)
[2019-05-22] MEDS ORDERED: SODIUM CHLORIDE 0.9% INJ PRN (18:21)
--- NOTE | 2019-05-22 19:58 | PROGRESS NOTE ---
DATE: 05/22/2019 SUBJECTIVE: The patient continues without chest discomfort or shortness of breath. He had coronary angiography today, which demonstrated patent stent left circumflex coronary artery, patent free mammary graft to LAD, and patent saphenous vein graft to distal right coronary (posterior descending artery). OBJECTIVE: Vital Signs: Blood pressure 161/81, heart rate 73, oxygen saturation 94% on room air. Chest: Clear to auscultation bilaterally. Cardiac: Exam reveals a regular rate and rhythm without appreciable murmur or gallop. Extremities: There is also peripheral edema. LABORATORY DATA: Includes a white blood cell count of 9.78, hematocrit 40.4, hemoglobin 13.8, platelet count 244,000. Sodium 138, potassium 3.3, chloride 100, carbon dioxide 23, BUN 19, creatinine 0.7, glucose 135. Triglycerides 697, total cholesterol 167, LDL cholesterol direct measurements 62, HDL cholesterol 20. IMPRESSION: 1. Atherosclerotic coronary disease. 2. Mixed hyperlipidemia. 3. Diabetes mellitus type 2. 4. Hypertension. RECOMMENDATIONS: 1. Continue medical management of the patient's coronary atherosclerosis. 2. Reasonable for patient to be discharged to home in next 24 hours. 3. I will be glad to see him for a followup in approximately 2 to 3 weeks post discharge. cc: Michi Joshi MD
[2019-05-22] MEDS: KLONOPIN PO SCH (20:25)
[2019-05-22] MEDS: LOVENOX SUBQ SCH (20:26)
[2019-05-22] MEDS: TYLENOL PO PRN (20:35)
[2019-05-22] MEDS: PROCARDIA ER PO SCH (20:48)
[2019-05-23] MEDS: MORPHINE IV PRN ×3 (01:31→10:43)
[2019-05-23] MEDS: REGLAN PO SCH (06:50)
[2019-05-23] MEDS: HUMALOG SUBQ SCH (06:56)
[2019-05-23] MEDS: HUMULIN R SUBQ SCH (06:56)
[2019-05-23 07:55] LABS: HEMOGLOBIN 13.1 g/dL (14.0-18.0); RBC 4.47 XMIL (4.7-6.1); WBC 10.68 X1000 (4.8-10.8)
[2019-05-23 07:56] LABS: BASO# 0.03 X1000 (0.0-0.2); BASO% 0.3 % (0.0-0.8); EOS# 0.23 X1000 (0.0-0.7); EOS% 2.2 % (0.0-10.0); HEMATOCRIT 39.1 % (42.0-52.0); IMM GRAN# 0.02 X1000 (0.0-0.04); IMM GRAN% 0.2 % (0.0-0.5); LYMPH# 2.16 X1000 (1.2-3.4); LYMPH% 20.2 % (20.5-51.1); MCH 29.3 PG (27-31); MCHC 33.5 g/dL (33-37); MCV 87.5 FL (81-99); MONO# 0.75 X1000 (0.11-0.59); MPV 10.5 FL (7.4-10.4); NEUT# 7.49 X1000 (1.4-6.5); NEUT% 70.1 % (42.2-75.2); PLT 257 X1000 (130-400); RDW 15.3 % (11.5-14.5)
[2019-05-23 08:08] LABS: AGAP 14; BUN 27 mg/dL (8-22); CALCIUM 8.9 mg/dL (8.8-10.2); CHLORIDE 98 mmol/L (98-107); COSMO 280; CREATININE 0.9 mg/dL (0.7-1.2); ESTIMATED GFR > 60; GLUCOSE 184 mg/dL (70-104); POTASSIUM 3.7 mmol/L (3.5-5.1); SODIUM 135 mmol/L (136-145); TCO2 23 mmol/L (25-35)
[2019-05-23 08:19] VITALS: BP 119/61
[2019-05-23] MEDS ORDERED: DIPHTHERIA/TETANUS ADULT IM ONE (09:19)
[2019-05-23] MEDS ORDERED: LASIX PO ONE (09:19)
[2019-05-23] MEDS ORDERED: PNEUMOVAX 23 IM ONE (09:19)
[2019-05-23] MEDS: LASIX IV SCH (09:22)
[2019-05-23] MEDS: HUMULIN N SUBQ SCH (09:23)
[2019-05-23] MEDS: HYDROCHLOROTHIAZIDE PO SCH (09:25)
[2019-05-23] MEDS: IMDUR PO SCH (09:25)
[2019-05-23] MEDS: LYRICA PO SCH (09:25)
[2019-05-23] MEDS: PRILOSEC PO SCH (09:25)
[2019-05-23] MEDS: LOPRESSOR PO SCH (09:25)
[2019-05-23] MEDS: PRINIVIL PO SCH (09:25)
[2019-05-23] MEDS: EFFIENT PO SCH (09:25)
[2019-05-23] MEDS: LIPITOR PO SCH ×2 (09:25→09:28)
[2019-05-23] MEDS: TYLENOL PO PRN (09:52)
--- NOTE | 2019-05-27 16:52 | DISCHARGE SUMMARY ---
ADMISSION DATE: 05/20/2019 DISCHARGE DATE: 05/23/2019 DISCHARGE DIAGNOSES: 1. Chest pain. 2. Nausea and vomiting. 3. Hypertension. 4. Coronary artery disease. 5. Gastroesophageal reflux disease. 6. Chronic pain with narcotic dependence. CONSULTATIONS: Dr. Michi Joshi from Cardiology. PROCEDURES: 1. Chest x-ray done on admission showed negative exam. 2. Chest CT showed no evidence of acute disease. 3. Cardiac catheterization showed that he does not appear to have any significant lesions that are amenable to intervention. He is noted to have severe disease in the territory of the left anterior descending as well as the right coronary artery. His free PHUC and vein graft appear to be patent. HOSPITAL COURSE: In brief, this is a 49-year-old male with pretty well known history of coronary artery disease. Actually, he had a stent in 3 weeks before his admission to the hospital. He reports pain on and off today so he decided to come to the emergency department. We consulted Cardiology who finally decided to do a left heart catheterization with results as above. Finally, the patient was educated to try to differentiate between pain of from his coronary artery bypass grafting than chest pain secondary to ischemic disease. The patient reports feeling fine at the time of my examination at discharge. Denies any kind of chest pain. No difficulty in breathing. So patient is going to be discharged in stable condition. He is going to be seen by Cardiology in 4 weeks. DISCHARGE PHYSICAL EXAMINATION: Vital signs: Temperature 98.5 degrees, heart rate 71 respiratory rate 20, blood pressure 119/61, O2 saturation 92% on room air. General Examination: This is a 49-year-old male, lying in bed, in no acute distress. Cardiovascular: S1, S2 heard. No murmurs, gallops, or rubs. Regular rate and rhythm. Respiratory: Clear bilaterally to auscultation. No work of breathing or using accessory muscles. Abdomen: Soft. Nontender to palpation. Bowel sounds present. No organomegaly. Extremities: No clubbing, cyanosis, or edema. Peripheral pulses present in both legs. Neurological: The patient is alert and oriented x3. Moves 4 extremities. DISCHARGE DISPOSITION: Home to self-care. FOLLOW UP: Follow up with Dr. Joshi in the office in 4 weeks. DISCHARGE MEDICATION: We are not making any changes to his current treatment. cc: Getachew Cerda MD MTDD
== END 2019-05-23 12:15 | disposition home or self-care (01) | DRG 287 ==
LOC: ED 17:47 → 4N 17:47 → SUATTDRO 22:18 → OBSVTOIN 22:18 → 2N 05-22 15:39
PROVIDERS: ATTEND Internal Medicine

== ENCOUNTER 2019-06-02 08:17 | Inpatient (IN) ==
[2019-06-02] MEDS ORDERED: ASPIRIN PO ONE (08:35)
[2019-06-02] MEDS ORDERED: PHENERGAN IM ONE ×2 (08:37→10:56)
--- NOTE | 2019-06-02 08:44 | PROVIDER DOCUMENTATION ---
HPI-Chest Pain - General Chief Complaint: Chest Pain Stated Complaint: cp, sob Time Seen by Provider: 06/02/19 08:27 Source: patient, EMS Allergies/Adverse Reactions: Patient Allergies Allergy/AdvReac Type Severity Reaction Status Date / Time methocarbamol [From Robaxin] Allergy Severe SHORTNESS Verified 05/20/19 23:52 OF BREATH prochlorperazine Allergy Severe seizures Verified 05/20/19 23:52 [From Compazine] tamsulosin [From Flomax] Allergy Severe SHORTNESS Verified 05/20/19 23:52 OF BREATH cephalexin [From Keflex] Allergy Mild RASH Verified 05/20/19 23:52 gabapentin [From Neurontin] Allergy Mild Hallucinati Verified 05/20/19 23:52 ons meperidine [From Demerol] Allergy Mild ITCHING Verified 05/20/19 23:52 Penicillins Allergy Mild RASH Verified 05/20/19 23:52 Sulfa (Sulfonamide Allergy Mild RASH Verified 05/20/19 23:52 Antibiotics) enalaprilat [From Vasotec] Allergy Unknown Unknown Verified 05/20/19 23:52 Home Medications: Home Medication List Medication Instructions Recorded Confirmed Last Taken Type Clonazepam [Klonopin] 2 mg PO HS #30 tab 02/07/18 05/20/19 05/19/19 21:00 Rx Pregabalin [Lyrica] 100 mg PO TID@0900,1500,2100 #90 02/07/18 05/20/19 05/20/19 15:00 Rx capsule Metoprolol [Lopressor] 100 mg PO BID 07/08/18 05/20/19 05/20/19 09:00 History Nifedipine [Nifedipine ER] 60 mg PO QHS 07/08/18 05/20/19 05/19/19 21:00 History Insulin Regular, Human [Humulin R 20 units SQ AC 08/19/18 05/20/19 05/20/19 12:00 History U-500 Kwikpen] Cannabidiol (Cbd) Extract 100 mg PO HS 01/08/19 05/20/19 05/20/19 09:00 History [Epidiolex] Insulin Human NPH [Humulin N] 70 unit SUBQ QAM 01/08/19 05/20/19 05/20/19 09:00 History Lisinopril 40 mg PO DAILY 01/08/19 05/20/19 05/20/19 09:00 History Magnesium 30 mg PO QHS 01/08/19 05/20/19 05/19/19 21:00 History Omeprazole 40 mg PO BID 01/08/19 05/20/19 05/20/19 09:00 History Potassium Chloride 99 mg PO QHS 01/08/19 05/20/19 05/19/19 21:00 History ATORVAstatin [Lipitor] 80 mg PO DAILY 04/28/19 05/20/19 05/20/19 09:00 History Hydrochlorothiazide 50 mg PO DAILY 04/28/19 05/20/19 05/20/19 09:00 History Isosorbide Mononitrate E.r. [Imdur] 30 mg PO DAILY 05/20/19 05/20/19 05/20/19 09:00 History Metoclopramide [Reglan] 10 mg PO AC + HS 05/20/19 05/20/19 Unknown History Prasugrel [Effient] 10 mg PO DAILY 05/20/19 05/20/19 05/20/19 09:00 History Furosemide 40 mg PO DAILY #90 tab 05/23/19 Unknown Rx - History of Present Illness-CP Nature of Presenting Problem: The patient first became sob this morning stating that he felt like his lungs were filling with fluid and then he began to have substernal chest pain. The patient had CABypass grafting in 2017. He has had some ankle swelling over the last several days. Location: reports: substernal Chest Pain Radiation: reports: no radiation Quality of Pain: reports: aching, pressure, tightness Onset/Duration: 1-3 hours ago Timing: improving Context/Activities at Onset: reports: light activity Modifying Factors: improves with: nothing Associated Symptoms: reports: shortness of breath. denies: abdominal pain, diaphoresis, fever/chills, vomiting Nitro Today/Relief: no nitro taken today Prior Chest Pain/Cardiac Workup: reports: other (By pass in 2017.) Similar Symptoms Previously?: Yes Recently Seen Here or By Another Healthcare Provider: No Review of Systems - Adult - REVIEW OF SYSTEMS - ADULT Constitutional: reports: no symptoms reported Eyes: reports: no symptoms reported Ears, Nose, Mouth & Throat: reports: no symptoms reported Cardiovascular: reports: chest pain Respiratory: reports: shortness of breath, wheezing Gastrointestinal: reports: no symptoms reported Genitourinary: reports: no symptoms reported Musculoskeletal: reports: no symptoms reported Integumentary: reports: no symptoms reported Neurological: reports: no symptoms reported Psychiatric: reports: no symptoms reported Endocrine: reports: no symptoms reported Hematologic/Lymphatic: reports: no symptoms reported Allergic/Immunologic: reports: no symptoms reported All Other Systems: Reviewed and Negative Past History - Adult - PAST MEDICAL HISTORY-ADULT Review of Records: reports: Nursing Assessment Review Major Childhood Illnesses: reports: denies history Cardiovascular: reports: CAD, HTN, hyperlipidemia, NV, other (6 stents) Respiratory: reports: denies history Gastrointestinal: reports: GERD Obstetrical/Gynecological: reports: denies history Genitourinary: reports: kidney disease Musculoskeletal: reports: denies history Neurological: reports: denies history Endocrine/Immune: reports: Diabetes Other Conditions: reports: denies history - PRIOR SURGERIES/PROCEDURES Surgical/Procedure History: reports: CABG (bypass x2 09/04/17), cholecystectomy, cardiac stent (x6), tonsillectomy, back/neck - IMMUNIZATION STATUS Childhood Immunizations: See Nurse Assessment Flu Vaccine: See Nurse Assessment - FAMILY HISTORY Family History: other (father and mother NV, father quadruple bypass) - SOCIAL HISTORY Smoking: denies Physical Exam-General - PHYSICAL EXAM-ADULT Initial Vital Signs Reviewed: Yes - CONSTITUTIONAL General Appearance: alert, mild distress - HEAD, EARS, NOSE, MOUTH & THROAT HENMT: normocephalic/atraumatic - NECK Neck: supple - RESPIRATORY Respiratory: lungs clear, normal breath sounds - CARDIOVASCULAR Cardiovascular: regular rate, rhythm - GASTROINTESTINAL (ABDOMEN) Abdominal Exam: normal bowel sounds, non tender, soft - MUSCULOSKELETAL Back Exam: normal inspection Extremity: no pedal edema - SKIN Integumentary: normal color, normal turgor - NEUROLOGIC Neurologic: grossly normal - PSYCHIATRIC Psych/Mental Status: oriented x 3 Progress - PLAN OF CARE/RESULTS Progress/Plan/Lab Results: Vital Signs - 8 hr 06/02/19 08:20 06/02/19 08:22 06/02/19 08:26 Temperature 97.4 F L Pulse Rate 67 68 67 Respiratory Rate 23 21 25 H Blood Pressure 140/74 140/74 O2 Sat by Pulse Oximetry 92 L 93 L 06/02/19 08:30 06/02/19 08:45 06/02/19 08:47 Temperature Pulse Rate 66 65 63 Respiratory Rate 20 18 25 H Blood Pressure 151/85 O2 Sat by Pulse Oximetry 95 91 L 91 L 06/02/19 09:00 06/02/19 09:01 06/02/19 09:15 Temperature Pulse Rate 61 62 59 L Respiratory Rate 18 19 15 Blood Pressure 139/85 O2 Sat by Pulse Oximetry 93 L 94 L 100 06/02/19 09:30 06/02/19 09:31 06/02/19 09:45 Temperature Pulse Rate 57 L 60 60 Respiratory Rate 23 27 H 25 H Blood Pressure 145/88 O2 Sat by Pulse Oximetry 99 99 98 06/02/19 10:00 06/02/19 10:01 06/02/19 10:15 Temperature Pulse Rate 59 L 60 58 L Respiratory Rate 31 H 22 30 H Blood Pressure 161/87 O2 Sat by Pulse Oximetry 97 98 98 06/02/19 10:30 06/02/19 10:31 06/02/19 10:32 Temperature Pulse Rate 63 59 L 61 Respiratory Rate 22 13 25 H Blood Pressure 156/87 O2 Sat by Pulse Oximetry 96 98 97 06/02/19 10:45 06/02/19 11:00 06/02/19 11:01 Temperature Pulse Rate 63 60 65 Respiratory Rate 28 H 23 24 Blood Pressure 147/97 O2 Sat by Pulse Oximetry 98 96 98 06/02/19 11:15 06/02/19 11:30 06/02/19 11:31 Temperature Pulse Rate 62 63 69 Respiratory Rate 27 H 22 6 L Blood Pressure 118/63 O2 Sat by Pulse Oximetry 99 98 99 06/02/19 11:45 06/02/19 12:00 06/02/19 12:01 Temperature Pulse Rate 68 69 63 Respiratory Rate 16 11 L 15 Blood Pressure 149/81 O2 Sat by Pulse Oximetry 97 99 99 Laboratory Results - last 24 hr 06/02/19 06/02/19 06/02/19 10:05 10:05 10:05 WBC 9.99 RBC 3.97 L Hgb 11.8 L Hct 34.7 L MCV 87.4 MCH 29.7 MCHC 34.0 RDW Std Deviation 14.8 H Plt Count 263 MPV 10.7 H Immature Gran % (Auto) 0.6 H Neut % (Auto) 69.4 Lymph % (Auto) 21.3 [place] % (Auto) 5.5 Eos % (Auto) 2.8 Baso % (Auto) 0.4 Immature Gran # (Auto) 0.06 H Neut # (Auto) 6.93 H Lymph # (Auto) 2.13 [place] # (Auto) 0.55 Eos # (Auto) 0.28 Baso # (Auto) 0.04 PT INR PTT (Actin FS) Sodium 140 Potassium 3.0 L Chloride 99 Carbon Dioxide 29 Anion Gap 12 BUN 14 Creatinine 0.7 Estimated GFR/1.73 m2 > 60 BUN/Creatinine Ratio 20 Glucose 163 H Calculated Osmolality 283 Calcium 7.6 L Total Bilirubin 0.46 AST 21 ALT 18 Alkaline Phosphatase 72 Creatine Kinase 156 Troponin T [id number] Pept 359 H Total Protein 6.2 L Albumin 4.0 Globulin 2.2 Albumin/Globulin Ratio 1.8 06/02/19 06/02/19 10:05 10:05 WBC RBC Hgb Hct MCV MCH MCHC RDW Std Deviation Plt Count MPV Immature Gran % (Auto) Neut % (Auto) Lymph % (Auto) [place] % (Auto) Eos % (Auto) Baso % (Auto) Immature Gran # (Auto) Neut # (Auto) Lymph # (Auto) [place] # (Auto) Eos # (Auto) Baso # (Auto) PT 13.5 INR 1.02 PTT (Actin FS) 28.1 Sodium Potassium Chloride Carbon Dioxide Anion Gap BUN Creatinine Estimated GFR/1.73 m2 BUN/Creatinine Ratio Glucose Calculated Osmolality Calcium Total Bilirubin AST ALT Alkaline Phosphatase Creatine Kinase Troponin T < 0.010 [id number] Pept Total Protein Albumin Globulin Albumin/Globulin Ratio Orders Category Date Time Status Cardiac Monitoring DIRECTED Care 06/02/19 08:36 Active Oxygen Therapy- ED Nursing DIRECTED Care 06/02/19 08:36 Active Saline Loc NOW Care 06/02/19 08:36 Active PICC Line Consult Routine Cons 06/02/19 09:07 Active CHEST-PORTABLE [RAD] Stat Exams 06/02/19 08:38 Completed CHEST-PORTABLE [RAD] Stat Exams 06/02/19 11:55 Completed CBC WITH ELECTRONIC DIFF [HEME] Stat Lab 06/02/19 10:05 Completed CK PROFILE [SP CHEM] Stat Lab 06/02/19 10:05 Completed COMPREHENSIVE METABOLIC PANEL [CHEM] Stat Lab 06/02/19 10:05 Completed PRO B-NATRIURETIC PEPTIDE Stat Lab 06/02/19 10:05 Completed PROTIME WITH INR [COAG] Stat Lab 06/02/19 10:05 Completed PTT [COAG] Stat Lab 06/02/19 10:05 Completed TROPONIN T Stat Lab 06/02/19 10:05 Completed 0.9% Sodium Chloride Inj [Ns] 250 ml Med 06/02/19 09:32 Discontinued .ROUTE As directed Aspirin Med 06/02/19 08:35 Discontinued 325 mg PO NOW ONE Furosemide [Lasix] Med 06/02/19 12:51 Discontinued 40 mg IV NOW ONE Hydromorphone [Dilaudid] Med 06/02/19 10:55 Discontinued 1 mg IV NOW ONE Promethazine [Phenergan] Med 06/02/19 10:56 Discontinued 12.5 mg IM NOW ONE Promethazine [Phenergan] Med 06/02/19 08:37 Discontinued 25 mg IM NOW ONE CP/SOB/Palp >45 yrs of Age Stat Oth 06/02/19 08:35 Ordered EKG [EKG] Stat Ther 06/02/19 08:36 Draft Result Diagrams: 06/02/19 10:05 06/02/19 10:05 - EKG 1 Time of EKG reading by physician:: 08:28 EKG Read and Signed by:: Ruby Buckner EKG Interpretation (*Must complete 3 of following elements*): Abnormal Rate: 66 Rhythm: sinus [place]: normal ST Wave: depressed - XRAY 1 XRAY Study: Chest Impression: See EMR Report ( EXAM: CHEST-PORTABLE 06/02/2019 HISTORY: sob/cp TECHNIQUE: AP portable at 0907 COMMENT: There is no evidence of acute cardiac or pulmonary disease. Compared to 05/28/2019 there has been no significant change. The inspiration is slightly less optimal. IMPRESSION: Stable chest. Electronically signed by Easton Franklin 06/02/2019 9:21 AM 06/02/19920 Interpreting Physician: Easton Franklin MD Dictated Date/Time: 06/02/19920 cc: Ruby Buckner MD; Sharri Ku MD) 2 XRAY Study: Chest Impression: See EMR Report ( EXAM: CHEST-PORTABLE 06/02/2019 HISTORY: PICC placement TECHNIQUE: AP portable upright chest at 1203 COMMENT: There is a left-sided PICC line with its tip in the superior vena cava. Otherwise are has been no significant change since the previous study at 0907. IMPRESSION: PICC line in the superior vena cava. Electronically signed by Easton Franklin 06/02/2019 12:17 PM 06/02/19 1217 Interpreting Physician: Easton Franklin MD Dictated Date/Time: 06/02/19 1216 cc: Ruby Buckner MD; Sharri Ku MD) - CONSULTS/PCP/HOSPITALIST Notification #1 *Consult/PCP/Hospitalist*: [place] Time Discussed: 13:13 Consult Disposition: Admit Departure - Departure Date of Disposition Decision: 06/02/19 Time of Disposition Decision: 13:14 DIAGNOSIS: Chest pain Disposition: ADMITTED INPATIENT 09 Certified Medical Emergency: Urgent Condition: Poor Additional Freetext Instructions: ED Follow Up Instructions: You have been treated by a care provider in the Emergency Department. These instructions are being provided to you so you can have an understanding of how to care for yourself upon discharge. Upon discharge from the Emergency Department, you are responsible for making arrangements for follow-up care by a physician of your choice. Take all prescribed medications as directed. Return to the Emergency Department immediately for any new or worsening symptoms. You may call the Physician Referral phone number at [phone] to obtain a list of Physicians who are taking new patients. Referrals and Follow-Ups: Sharri Ku MD [Primary Care Provider] - - Critical Care Note This patient required my direct & personal management of CC.: No Attestation - Physician/ BAILIO Attestation The physician spent face to face time with patient:: Yes Advanced Practice Provider documentation review:: Supervising physician onsite and consulted in the evaluation and care of this patient. The physician did have a face to face encounter with the patient.
--- NOTE | 2019-06-02 08:51 | EKG Report ---
Test Performed on : 06/02/2019 08:28:57 AM Test Reason : chest pain Blood Pressure : / mmHG Vent. Rate : 066 BPM Atrial Rate : 066 BPM P-R Int : 180 ms QRS Dur : 106 ms QT Int : 444 ms P-R-T Axes : 032 040 179 degrees QTc Int : 465 ms Normal sinus rhythm. Possible Left atrial enlargement T wave abnormality, consider inferolateral ischemia Prolonged QT Abnormal ECG When compared with ECG of 28-MAY-2019 22:05, (Unconfirmed) premature ventricular complexes. are no longer present Unconfirmed Result
--- NOTE | 2019-06-02 09:24 | Diag Imaging Result Doc PS360 ---
EXAM: CHEST-PORTABLE 06/02/2019 HISTORY: sob/cp TECHNIQUE: AP portable at 0907 COMMENT: There is no evidence of acute cardiac or pulmonary disease. Compared to 05/28/2019 there has been no significant change. The inspiration is slightly less optimal. IMPRESSION: Stable chest. Electronically signed by Easton Frankiln 06/02/2019 9:21 AM
[2019-06-02] MEDS ORDERED: NS 250 ML ONE (09:32)
[2019-06-02 10:50] LABS: BASO# 0.04 X1000 (0.0-0.2); BASO% 0.4 % (0.0-0.8); EOS# 0.28 X1000 (0.0-0.7); EOS% 2.8 % (0.0-10.0); HEMATOCRIT 34.7 % (42.0-52.0); HEMOGLOBIN 11.8 g/dL (14.0-18.0); IMM GRAN# 0.06 X1000 (0.0-0.04); IMM GRAN% 0.6 % (0.0-0.5); LYMPH# 2.13 X1000 (1.2-3.4); LYMPH% 21.3 % (20.5-51.1); MCH 29.7 PG (27-31); MCV 87.4 FL (81-99); MONO# 0.55 X1000 (0.11-0.59); MONO% 5.5 % (1.7-9.3); MPV 10.7 FL (7.4-10.4); NEUT# 6.93 X1000 (1.4-6.5); NEUT% 69.4 % (42.2-75.2); PLT 263 X1000 (130-400); RBC 3.97 XMIL (4.7-6.1); RDW 14.8 % (11.5-14.5); WBC 9.99 X1000 (4.8-10.8)
[2019-06-02 10:53] LABS: PROTIME 13.5 Seconds (11.0-16.0)
[2019-06-02 10:54] LABS: INR 1.02; PTT 28.1 Seconds (22.3-41.8)
[2019-06-02] MEDS ORDERED: DILAUDID IV ONE (10:55)
[2019-06-02 11:05] LABS: AGAP 12; ALB/GLOB RATIO 1.8; ALKALINE PHOSPHATASE 72 U/L (32-122); BUN 14 mg/dL (8-22); CALCIUM 7.6 mg/dL (8.8-10.2); CHLORIDE 99 mmol/L (98-107); CK PROFILE 156 U/L (24-204); COSMO 283; CREATININE 0.7 mg/dL (0.7-1.2); ESTIMATED GFR > 60; GLUCOSE 163 mg/dL (70-104); GOT 21 U/L (10-34); GPT 18 U/L (10-44); SODIUM 140 mmol/L (136-145); TCO2 29 mmol/L (25-35); TOTAL BILIRUBIN 0.46 mg/dL (0.20-1.00); TOTAL PROTEIN 6.2 g/dL (6.3-8.3)
--- NOTE | 2019-06-02 12:19 | Diag Imaging Result Doc PS360 ---
EXAM: CHEST-PORTABLE 06/02/2019 HISTORY: PICC placement TECHNIQUE: AP portable upright chest at 1203 COMMENT: There is a left-sided PICC line with its tip in the superior vena cava. Otherwise are has been no significant change since the previous study at 0907. IMPRESSION: PICC line in the superior vena cava. Electronically signed by Easton Franklin 06/02/2019 12:17 PM
[2019-06-02] MEDS ORDERED: LASIX IV ONE (12:51)
--- NOTE | 2019-06-02 14:18 | Diag Imaging Result Doc PS360 ---
EXAM: CT ANGIOGRM PULMONARY ARTERIES 06/02/2019 HISTORY: new onset SOB TECHNIQUE: This exam was performed using automated exposure control, adjustment of mA or kV according to patient size, and/or use of iterative reconstruction technique. COMMENT: There are no filling defects in the pulmonary arteries. The aorta is not distended and there is no evidence of dissection. There has been previous sternotomy and there is dense calcification in the coronary arteries. There are rods in the thoracic spine. There is a dehiscence in the seventh intercostal space on the right which was also present on 05/21/2019. The mediastinum is stable in appearance. There are patchy opacities present in the posterior upper lobes bilaterally and in the lower lobes particularly the left lower lobe. This was not the case on the previous examination. IMPRESSION: Bronchopneumonia. Electronically signed by Easton Franklin 06/02/2019 2:15 PM
[2019-06-02] MEDS ORDERED: VANCOMYCIN IV PER PHARMACY MISC SCH (15:51)
[2019-06-02] MEDS ORDERED: POTASSIUM CHLORIDE 40 MEQ/SWI 40 MEQ/100 ML IVPB IV ONE (15:51)
[2019-06-02] MEDS ORDERED: TYLENOL PO PRN (15:51)
[2019-06-02] MEDS ORDERED: ZOFRAN IV PRN (15:51)
[2019-06-02] MEDS ORDERED: NITROGLYCERIN SL PRN (15:51)
[2019-06-02] MEDS ORDERED: MAGNESIUM SULFATE 2 GM/S.W.I. 2 GM/50 ML IVPB IV ONE (15:51)
[2019-06-02] MEDS: NORCO-7.5 PO PRN ×2 (16:35→21:51)
[2019-06-02] MEDS ORDERED: VANCOMYCIN 2,000 MG in NS 500 ML IV ONE (17:00)
[2019-06-02] MEDS: LEVAQUIN 500 MG in NS 100 ML IV SCH (18:43)
--- NOTE | 2019-06-02 19:05 | HISTORY AND PHYSICAL ---
PRIMARY CARE PROVIDER: Sharri Ku MD TRAINING INSTRUCTOR: Michi Joshi MD CHIEF COMPLAINT: Chest pain, lungs filling up with fluid, bilateral lower extremity edema. HISTORY OF PRESENT ILLNESS: Mr. Polanco is a is a 49-year-old male who was just discharged from our service on 05/27/2019 after experiencing chest pain. He had a heart catheterization. They continued medical management. He has history of coronary artery disease with previous stenting, hypertension, hyperlipidemia, gastroparesis, insulin- dependent diabetes mellitus, chronic back pain, GERD, chronic narcotic use, chronic constipation. He reported to the ED after he felt like he was retaining fluid over the weekend, short of breath, not sleeping. He went to lay down for a nap at 6:30 a.m. and he felt like water was just pouring into his lungs. It was pouring out of his eyes, out of his nose, out of his mouth. He did report some chills as well as a cough for 2 days with productive clear sputum. He was given a dose of IV Lasix in the ED. His first set of cardiac enzymes were negative. Again, the patient just had an extensive cardiac workup. We did a pulmonary arteriogram that shows bronchopneumonia. We will initiate him on hospital-acquired pneumonia antibiotics. He does have numerous allergies. We will do vancomycin and Levaquin. Continue with supplemental O2. ED had a PICC line placed secondary to not being able to obtain an IV. He is currently requesting pain medication and IV Phenergan. I told him we would do p.o. pain medication and do IV Zofran. PAST MEDICAL HISTORY: 1. Coronary artery disease with previous stenting and CABG. 2. Hypertension. 3. Hyperlipidemia. 4. Gastroparesis. 5. Diabetes mellitus. 6. Chronic back pain. 7. GERD. 8. Chronic narcotic use. 9. Chronic constipation. PREVIOUS SURGICAL HISTORY: 1. Coronary artery bypass grafting in 2017. 2. Cardiac stenting. 3. Multiple spinal surgeries with placement of a neural spinal stimulator in his lower back. 4. Tonsillectomy. 5. Cholecystectomy. SOCIAL HISTORY: He is on disability. He lives with his . No tobacco, alcohol or illicit drug use. He was following a pain doctor here in [place]; however, they did not see eye-to-eye so he quit seeing him, currently not taking any pain medications at home except for ibuprofen. FAMILY HISTORY: Mother and father both had coronary artery disease and CABG. Father with unspecified cancer. Both grandparents, maternal and paternal, had diabetes and coronary artery disease. ALLERGIES: To Neurontin, Keflex, Vasotec, Demerol, Robaxin, penicillin, Compazine, and Flomax. HOME MEDICATIONS: Have not been verified. REVIEW OF SYSTEMS: A 10-point review of systems completely negative except for those mentioned in HPI. PHYSICAL EXAMINATION: VITAL SIGNS: Temperature is 97.4 degrees, heart rate 62, respirations 30, blood pressure 138/73, O2 is 100% on non-rebreather. GENERAL: Mr. Polanco is a 49-year-old obese male who is sitting up in the stretcher in no acute distress. HEENT: Atraumatic, normocephalic. PERRL. NECK: Supple. Trachea midline. CARDIOVASCULAR: S1, S2 appreciated. No murmurs, gallops, rubs noted. RESPIRATORY: Lung sounds clear bilaterally, bilaterally decreased in the bases. GASTROINTESTINAL: Obese, soft, nontender, nondistended. Positive bowel sounds x4 quadrants. EXTREMITIES: Lower extremities with trace edema. He does have an abrasion to his right upper extremity where he dropped a piece of wood on it. There was no oozing. No erythema. No signs of infection. NEUROLOGIC: No focal deficits noted. DIAGNOSTIC DATA: Chest x-ray: Stable. Followup chest x-ray showed PICC line in good position. Pulmonary arteriogram: Bronchopneumonia. LABORATORY DATA: White count 9, hemoglobin and hematocrit 11 and 34, platelet count is 263,000. Sodium 140, potassium 3.0, BUN 14, creatinine 0.7, blood glucose is 163. Troponin less than 0.010, proBNP 359. ASSESSMENT AND PLAN: 1. Bronchopneumonia hospital acquired. We will continue with vancomycin and Levaquin. Patient has allergies to several antibiotics. Continue with aggressive pulmonary toilet, bronchodilators, supplemental O2. I believe he actually needs to be weaned down off his Ventimask and placed on nasal cannula. 2. Congestive heart failure with preserved ejection fraction. The patient complains of lower extremity swelling; however, there is some question of his compliance with diet and fluid intake. He does not weigh himself daily. He reports he has never been told him much fluid he could intake, and he feels that he has been sticking to his diet; however, he does have a BMI of 34. He last reported his weight was 297. He is currently at 300. He will need more education on congestive heart failure. 3. Hypokalemia and hypomagnesium. We will replace his magnesium followed by his potassium. Recheck his levels in the a.m. 4. Atherosclerotic coronary disease. The patient was complaining of some chest pain. First set of cardiac enzymes have been negative. We will continue to trend 2 more sets. He just had a recent heart catheterization as well as angiography at [facility]. We will continue with his home medications when verified. 5. Mixed hyperlipidemia. 6. Severe back pain disorder requiring a nerve stimulator, and he has been on long-term narcotic use; however, he did not like his pain specialist here in [place] and quit going and has not been taking anything, currently requesting pain medication. 7. Diabetes mellitus type 2 with gastroparesis. We will continue on fingerstick pattern blood sugars with sliding scale. 8. Hypertension. We will continue home medications when verified. Further recommendations to follow physician evaluation, laboratory and diagnostic data. Dictated by SHRUTHI Geronimo for Getachew Cerda MD Addendum: Patient seen and examined by myself. Agree with SHRUTHI note. It reflects my assessment and plan. Patient is being admitted to hospital for HCAP. Will start broad spectrum antibiotics and monitor him closely. cc: MD Michi Coates MD Martha Read [facility]PITALMacie
[2019-06-02] MEDS: HUMALOG SUBQ SCH ×2 (21:05→21:52)
[2019-06-02 21:36] LABS: CK INDEX 1.4 (0.0-2.5); CK-MB 3.27 ng/mL (0.0-5.0)
[2019-06-03 01:39] LABS: CK INDEX 1.3 (0.0-2.5); CK-MB 3.22 ng/mL (0.0-5.0)
[2019-06-03] MEDS: NORCO-7.5 PO PRN ×3 (02:07→22:23)
[2019-06-03] MEDS: VANCOMYCIN 1,850 MG in NS 500 ML IV SCH ×2 (05:20→19:14)
[2019-06-03] MEDS: PRILOSEC PO SCH ×2 (06:51→22:24)
[2019-06-03] MEDS: HUMALOG SUBQ SCH ×4 (06:51→22:24)
[2019-06-03 06:52] LABS: BASO# 0.03 X1000 (0.0-0.2); BASO% 0.3 % (0.0-0.8); EOS# 0.23 X1000 (0.0-0.7); EOS% 2.2 % (0.0-10.0); HEMATOCRIT 34.6 % (42.0-52.0); HEMOGLOBIN 11.4 g/dL (14.0-18.0); LYMPH# 1.73 X1000 (1.2-3.4); LYMPH% 16.4 % (20.5-51.1); MCH 29.5 PG (27-31); MCHC 32.9 g/dL (33-37); MCV 89.6 FL (81-99); MONO# 0.63 X1000 (0.11-0.59); MPV 10.6 FL (7.4-10.4); NEUT# 7.92 X1000 (1.4-6.5); NEUT% 75.1 % (42.2-75.2); PLT 227 X1000 (130-400); RBC 3.86 XMIL (4.7-6.1); RDW 14.7 % (11.5-14.5); WBC 10.54 X1000 (4.8-10.8)
[2019-06-03 07:09] LABS: AGAP 12; ALB/GLOB RATIO 1.3; ALBUMIN 3.6 g/dL (3.5-5.0); ALKALINE PHOSPHATASE 75 U/L (32-122); BUN 11 mg/dL (8-22); CALCIUM 7.7 mg/dL (8.8-10.2); CHLORIDE 98 mmol/L (98-107); COSMO 276; CREATININE 0.7 mg/dL (0.7-1.2); ESTIMATED GFR > 60; GLUCOSE 176 mg/dL (70-104); GOT 20 U/L (10-34); GPT 17 U/L (10-44); MAGNESIUM 1.7 mg/dL (1.5-2.7); POTASSIUM 3.5 mmol/L (3.5-5.1); SODIUM 136 mmol/L (136-145); TCO2 26 mmol/L (25-35); TOTAL BILIRUBIN 0.46 mg/dL (0.20-1.00); TOTAL PROTEIN 6.4 g/dL (6.3-8.3)
--- NOTE | 2019-06-03 07:21 | Diag Imaging Result Doc PS360 ---
EXAM: CHEST-PORTABLE INDICATION: Pneumonia TECHNIQUE: One view COMPARISON: 06/02/2019 FINDINGS: The left-sided PICC line is in stable position. The lungs remain grossly clear. No new consolidation is identified. Cardiac silhouette is stable. IMPRESSION: Stable chest with no definite acute pathology by plain radiograph. Electronically signed by John Andrade 06/03/2019 7:19 AM
--- NOTE | 2019-06-03 07:26 | EKG Report ---
Test Performed on : 06/03/2019 07:07:11 AM Test Reason : follow up CP Blood Pressure : / mmHG Vent. Rate : 066 BPM Atrial Rate : 066 BPM P-R Int : 190 ms QRS Dur : 110 ms QT Int : 436 ms P-R-T Axes : 044 042 201 degrees QTc Int : 457 ms Sinus rhythm. with occasional premature ventricular complexes. T wave abnormality, consider inferolateral ischemia Abnormal ECG When compared with ECG of 02-JUN-2019 08:28, (Unconfirmed) premature ventricular complexes. are now present Confirmed by Jaylene PHOENIX, Renny Longoria ([id number]) on 06/04/2019 10:07:09 PM
[2019-06-03] MEDS ORDERED: ASPIRIN PO SCH (09:00)
[2019-06-03] MEDS: HUMULIN R SUBQ SCH ×2 (11:58→17:37)
[2019-06-03] MEDS: REGLAN PO SCH ×3 (11:58→22:23)
[2019-06-03] MEDS ORDERED: LOPRESSOR PO SCH (12:45)
--- NOTE | 2019-06-03 16:30 | EKG Report ---
Test Performed on : 06/03/2019 4:21:14 PM Test Reason : chest pain Blood Pressure : / mmHG Vent. Rate : 078 BPM Atrial Rate : 078 BPM P-R Int : 206 ms QRS Dur : 112 ms QT Int : 400 ms P-R-T Axes : 042 040 201 degrees QTc Int : 456 ms Normal sinus rhythm. ST & T wave abnormality, consider inferolateral ischemia Abnormal ECG When compared with ECG of 03-JUN-2019 07:07, (Unconfirmed) premature ventricular complexes. are no longer present Confirmed by Jaylene PHOENIX, Renny Longoria ([id number]) on 06/04/2019 10:16:06 PM
[2019-06-03] MEDS: LEVAQUIN 500 MG in NS 100 ML IV SCH (17:39)
[2019-06-03] MEDS ORDERED: PROCARDIA ER PO SCH (21:00)
[2019-06-03] MEDS ORDERED: HUMULIN N SUBQ SCH (21:00)
[2019-06-03] MEDS: LOPRESSOR PO SCH (22:23)
[2019-06-03] MEDS: FISH OIL CONCENTRATE PO SCH (22:24)
[2019-06-04] MEDS: NORCO-7.5 PO PRN (04:00)
[2019-06-04] MEDS: VANCOMYCIN 1,850 MG in NS 500 ML IV SCH (04:37)
[2019-06-04] MEDS: HUMALOG SUBQ SCH ×2 (07:01→11:47)
[2019-06-04] MEDS: PRILOSEC PO SCH ×2 (07:02→09:04)
[2019-06-04] MEDS: REGLAN PO SCH ×2 (07:02→11:48)
[2019-06-04 07:32] VITALS: BP 129/48
[2019-06-04] MEDS: HUMULIN R SUBQ SCH ×2 (07:50→11:48)
[2019-06-04] MEDS ORDERED: LIPITOR PO SCH (09:00)
[2019-06-04] MEDS ORDERED: ASPIRIN EC PO SCH (09:00)
[2019-06-04] MEDS ORDERED: LASIX PO SCH (09:00)
[2019-06-04] MEDS ORDERED: IMDUR PO SCH (09:00)
[2019-06-04] MEDS ORDERED: HUMULIN N SUBQ SCH (09:00)
[2019-06-04] MEDS ORDERED: EFFIENT PO SCH (09:00)
[2019-06-04] MEDS: FISH OIL CONCENTRATE PO SCH (09:02)
[2019-06-04] MEDS: LOPRESSOR PO SCH (09:03)
--- NOTE | 2019-06-05 12:12 | DISCHARGE SUMMARY ---
ADMISSION DATE: 06/02/2019 DISCHARGE DATE: 06/04/2019 DISCHARGE DIAGNOSES: 1. Atypical chest pain. 2. Bronchopneumonia. CONSULTATIONS: None. PROCEDURES: None. HOSPITAL COURSE: Briefly, this is a 49-year-old male, I would say well known to our service, who comes in for atypical chest pain. He was found to have pneumonia. He was placed on vancomycin and Levaquin. He was felt to have CHF. He was placed on Lasix but there was concern over compliance. He has back pain and has had issues with wanting pain medications. He has a stimulator. CT angiogram showed bronchopneumonia in the lower lobes, left lower lobe, and upper lobes, so he was treated for pneumonia. Blood pressure was a bit elevated until we got his blood pressure medications under control. In any case, on the , he was breathing comfortably on room air. He had some mild rales at the right base, 97% saturations. He was afebrile pretty much the whole time he was here, so he was felt stable for discharge. MEDICATIONS: Nifedipine 60, aspirin 81 daily, Effient 10 daily, Humulin NPH 70 in the morning and 20 with meals of regular insulin, Imdur 30 daily, Lipitor 80 daily, lisinopril 40 daily, metoprolol 100 b.i.d., fish oil 2 capsules b.i.d., Prilosec 40 b.i.d., Phenergan 25 t.i.d., Reglan 5 mg a.c. and at bedtime, Demadex 20 daily which replaced his furosemide, doxycycline 100 p.o. b.i.d. for 7 days, and Levaquin 500 p.o. daily for 7 days. FOLLOWUP: Follow up with his PCP, Sharri Ku. Followup chest x-ray in 4 to 6 weeks. cc: Abilio Dominguez MD
== END 2019-06-04 12:01 | disposition home or self-care (01) | DRG 195 ==
LOC: SUPCPDRO → ED 08:17 → 4N 08:17 → OBSVTOIN 14:24 → SUATTDRO 14:24
PROVIDERS: ATTEND Internal Medicine